=== PATIENT | female | born 1955 | race Caucasian/White ===

== ENCOUNTER → 2019-05-14 | Outpatient (CLI) | payer MEDICARE, BC, SELFPAY ==
[2019-05-14 12:16] LABS: Absolute Neutrophil Count 3.3 X10^3/uL (2.0-7.7); Basophil# 0.03 X10^3/uL; Basophil% 0.5 % (0-1); Eosinophil# 0.08 X10^3/uL; Eosinophils% 1.4 % (0-5); Hematocrit 45.2 % (37-47); Hemoglobin 14.1 g/dL (12.0-15.0); Lymphocyte % 32.5 % (19-41); Mean Corp Hgb Conc 31.2 g/dL (32-36); Mean Corpuscular Hgb 28.9 pg (27.0-32.0); Mean Corpuscular Volume 92.6 fL (81-99); Mean Platelet Vol. 10.3 fl (6.2-12.0); Monocyte# 0.49 X10^3/uL; Monocyte% 8.4 % (0-10); NRBC Flagged by Analyzer 0 % (0-5); Neutrophil # 3.34 X10^3/uL (2.7-7.7); Platelet Count 300 K/mm3 (150-450); RBC Distribution Width CV 13.2 % (11.6-14.6); RBC Distribution Width SD 44.8 fl (35.1-43.9); Red Blood Count 4.88 M/mm3 (4.2-5.4); White Blood Count 5.9 K/mm3 (4.4-11.0)
[2019-05-14 12:42] LABS: AST(SGOT) 19 U/L (15-37); Alanine Aminotransfer ALT/SGPT 37 U/L (13-56); Albumin, Serum 3.5 g/dL (3.2-5.0); Alkaline Phosphatase 81 U/L (45-117); Anion Gap 6 (5-15); BUN 13 mg/dL (7-18); BUN/Creat Ratio 17.1 RATIO (10-20); Calcium,Total 8.6 mg/dL (8.5-10.1); Chloride 106 mmol/L (98-107); Cholesterol 245 mg/dL (200); Creatinine, Serum 0.76 mg/dL (0.55-1.02); EST Glomerular Filtration Rate 81 mL/min (>60); Est Glom Filt Rate - Afr Amer 98 mL/min (>60); Globulin 3.5 g/dL (2.2-4.2); Glucose 90 mg/dL (74-106); High Density Lipoprotein 54 mg/dL; Potassium 4.3 mmol/L (3.5-5.1); Sodium Level 142 mmol/L (136-145); Triglycerides 110 mg/dL; Very Low Density Lipoprotein 22 mg/dL (5-40)
== END | disposition home or self-care (01) ==
PROVIDERS: Family Provider Family Medicine; PCP Family Medicine; Visit Provider Family Medicine
DX: E78.5 Hyperlipidemia, unspecified (principal); Z51.81 Encounter for therapeutic drug level monitoring
CPT/HCPCS: 36415; 80053; 80061; 85025

== ENCOUNTER → 2020-08-28 | Outpatient (CLI) | payer MEDICARE, BC, SELFPAY ==
[2020-08-30 10:41] LABS: HPV Reflexed? NOT INDICATED
== END | disposition home or self-care (01) ==
LOC: LABSPEC 10:57
PROVIDERS: PCP Family Medicine; Visit Provider Family Medicine
DX: Z12.4 Encounter for screening for malignant neoplasm of cervix (principal)
CPT/HCPCS: 88175; G0145

== ENCOUNTER → 2020-08-30 09:34 | Outpatient (CLI) | payer MEDICARE, BC, SELFPAY ==
[2020-08-30 12:52] LABS: Basophil# 0.04 X10^3/uL; Basophil% 0.4 % (0-1); Eosinophil# 0.15 X10^3/uL; Eosinophils% 1.7 % (0-5); Hemoglobin 14.9 g/dL (12.0-15.0); Lymphocyte % 22.4 % (19-41); Mean Corp Hgb Conc 33.1 g/dL (32-36); Mean Corpuscular Hgb 30.3 pg (27.0-32.0); Mean Corpuscular Volume 91.6 fL (81-99); Mean Platelet Vol. 12.6 fl (6.2-12.0); Monocyte# 0.69 X10^3/uL; Monocyte% 7.7 % (0-10); NRBC Flagged by Analyzer 0 % (0-5); Neutrophil # 6.02 X10^3/uL (2.7-7.7); Neutrophil % 67.6 % (47-70); Platelet Count 298 K/mm3 (150-450); RBC Distribution Width CV 12.2 % (11.6-14.6); RBC Distribution Width SD 41.9 fl (35.1-43.9); Red Blood Count 4.91 M/mm3 (4.2-5.4); White Blood Count 8.9 K/mm3 (4.4-11.0)
[2020-08-30 13:11] LABS: AST(SGOT) 33 U/L (15-37); Alanine Aminotransfer ALT/SGPT 65 U/L (13-56); Albumin, Serum 3.6 g/dL (3.2-5.0); Alkaline Phosphatase 87 U/L (45-117); Anion Gap 4 (5-15); BUN 14 mg/dL (7-18); BUN/Creat Ratio 20.9 RATIO (10-20); Calcium,Total 8.7 mg/dL (8.5-10.1); Chloride 107 mmol/L (98-107); Cholesterol 271 mg/dL (200); Creatinine, Serum 0.67 mg/dL (0.55-1.02); EST Glomerular Filtration Rate 94 mL/min (>60); Est Glom Filt Rate - Afr Amer 113 mL/min (>60); Globulin 3.5 g/dL (2.2-4.2); Glucose 94 mg/dL (74-106); High Density Lipoprotein 55 mg/dL; Potassium 4.1 mmol/L (3.5-5.1); Protein, Total 7.1 g/dL (6.4-8.2); Sodium Level 141 mmol/L (136-145); Triglycerides 123 mg/dL; Very Low Density Lipoprotein 25 mg/dL (5-40)
[2020-08-30 13:20] LABS: ALB/GLOB Ratio 1.2 RATIO (0.9-2.4); AST(SGOT) 19 U/L (15-37); Alanine Aminotransfer ALT/SGPT 19 U/L (13-56); Albumin, Serum 3.7 g/dL (3.2-5.0); Alkaline Phosphatase 94 U/L (45-117); Anion Gap 7 (5-15); BUN 26 mg/dL (7-18); BUN/Creat Ratio 31.4 RATIO (10-20); Calcium,Total 9.2 mg/dL (8.5-10.1); Chloride 102 mmol/L (98-107); Creatinine, Serum 0.83 mg/dL (0.55-1.02); EST Glomerular Filtration Rate 73 mL/min (>60); Est Glom Filt Rate - Afr Amer 88 mL/min (>60); Glucose 110 mg/dL (74-106); Lipase 127 U/L (73-393); Potassium 3.1 mmol/L (3.5-5.1); Protein, Total 6.7 g/dL (6.4-8.2); Sodium Level 140 mmol/L (136-145)
== END ==
PROVIDERS: PCP Family Medicine; Visit Provider Family Medicine
DX: E78.5 Hyperlipidemia, unspecified (principal); Z51.81 Encounter for therapeutic drug level monitoring
CPT/HCPCS: 36415; 80053; 80061; 83690; 85025

== ENCOUNTER → 2020-10-31 09:55 | Outpatient (CLI) | payer MEDICARE, SELFPAY ==
[2020-10-31 12:33] LABS: ALB/GLOB Ratio 1.1 RATIO (0.9-2.4); AST(SGOT) 18 U/L (15-37); Alanine Aminotransfer ALT/SGPT 44 U/L (13-56); Albumin, Serum 3.6 g/dL (3.2-5.0); Alkaline Phosphatase 72 U/L (45-117); Anion Gap 2 (5-15); BUN 16 mg/dL (7-18); BUN/Creat Ratio 21.5 RATIO (10-20); Calcium,Total 8.9 mg/dL (8.5-10.1); Chloride 106 mmol/L (98-107); Cholesterol 244 mg/dL (200); Creatinine, Serum 0.74 mg/dL (0.55-1.02); EST Glomerular Filtration Rate 83 mL/min (>60); Est Glom Filt Rate - Afr Amer 100 mL/min (>60); Globulin 3.3 g/dL (2.2-4.2); Glucose 98 mg/dL (74-106); High Density Lipoprotein 67 mg/dL; Potassium 4.2 mmol/L (3.5-5.1); Protein, Total 6.9 g/dL (6.4-8.2); Sodium Level 141 mmol/L (136-145); Triglycerides 97 mg/dL; Very Low Density Lipoprotein 19 mg/dL (5-40)
[2020-10-31 12:46] LABS: Absolute Lymphocyte Count 2.08 X10^3/uL (0.83-4.51); Absolute Neutrophil Count 4.3 X10^3/uL (2.0-7.7); Basophil# 0.03 X10^3/uL; Basophil% 0.4 % (0-1); Eosinophils% 1.4 % (0-5); Hematocrit 46.4 % (37-47); Hemoglobin 14.6 g/dL (12.0-15.0); Lymphocyte # 2.08 X10^3/ul (4.0); Lymphocyte % 29.9 % (19-41); Mean Corp Hgb Conc 31.5 g/dL (32-36); Mean Corpuscular Hgb 28.7 pg (27.0-32.0); Mean Corpuscular Volume 91.3 fL (81-99); Monocyte% 5.7 % (0-10); NRBC Flagged by Analyzer 0 % (0-5); Neutrophil # 4.33 X10^3/uL (2.7-7.7); Neutrophil % 62.3 % (47-70); Platelet Count 300 K/mm3 (150-450); RBC Distribution Width CV 12.8 % (11.6-14.6); RBC Distribution Width SD 43.7 fl (35.1-43.9); Red Blood Count 5.08 M/mm3 (4.2-5.4)
== END ==
PROVIDERS: PCP Family Medicine; Visit Provider Family Medicine
DX: E78.5 Hyperlipidemia, unspecified (principal); Z51.81 Encounter for therapeutic drug level monitoring
CPT/HCPCS: 80053; 80061; 85025

== ENCOUNTER → 2020-12-04 13:33 | Outpatient (CLI) | payer MEDICARE, BC, SELFPAY ==
--- NOTE | 2020-12-04 13:36 | CT_ITS ---
STUDY: CT SCAN LOWER EXTREMITY LEFT REASON FOR EXAM: Female, 65 years old. VARUS DEFORMITY. RUI protocol. RADIATION DOSAGE (If Supplied By Facility): CTDIvol = ( 18.76 ) mGy, DLP = ( 1014.71 ) mGycm. Individualized dose optimization techniques were used for this CT.? TECHNIQUE: Multiple axial tomographic images of the left lower extremity including the knee joint, hip joint and ankle joint were obtained. Coronal and sagittal reconstruction was obtained as well. COMPARISON: None. FINDINGS: Mild degree of joint space narrowing of the hip joint with degenerative spur formation along the superior and inferior aspect of the acetabulum. Marked degree of joint space narrowing involving the medial compartment of the knee joint with degenerative spur formation along the medial femoral condyle as well as the medial tibial plateau. Moderate degree of the osteoarthritis of the patellofemoral joint with spur formation along the anterior distal femur as well as the superior and inferior portions of the patella. Moderate-sized joint effusion. Imaging of the ankle joint was performed. Findings suggestive of an old avulsion fracture of the medial malleolus. Calcaneal spurs. CT/Extremity Lower without Contra IMPRESSION: Moderate degree of joint space narrowing of the medial compartment of the knee joint with degenerative spur formation. Moderate degree of the osteoarthritis involving the patellofemoral joint with a joint effusion. Electronically Signed: Tim Uribe MD at 14:16 EDT , Service support ,
== END ==
PROVIDERS: PCP Family Medicine; Referring Provider Specialist; Visit Provider Specialist
DX: M21.162 Varus deformity, not elsewhere classified, left knee (principal)
CPT/HCPCS: 73700

== ENCOUNTER → 2020-12-19 06:09 | Outpatient (CLI) | payer MEDICARE, BC, SELFPAY ==
[2020-12-13 08:45] VITALS: BMI 33.0
--- NOTE | 2020-12-19 06:12 | ECHOD_ITS ---
Reason For Study: CAD Procedure This was a 2D Doppler, Color Flow transthoracic echocardiogram. Exam performed in department. Left Ventricle Normal LV size. Left ventricular systolic function is normal. The estimated ejection fraction is 60 %. Stage 1 diastolic dysfunction. No regional wall motion abnormalities noted. Right Ventricle Normal RV size. Normal systolic function. Atria Normal left atrium. Normal right atrium. Mitral Valve Normal mitral valve. Tricuspid Valve Normal tricuspid valve. Mild tricuspid valve insufficiency. Aortic Valve Normal aortic valve. Trisinus/trileaflet aortic valve. Pulmonic Valve Normal pulmonic valve. Great Vessels Normal aortic root. The pulmonary artery is normal size. Normal inferior vena cava. Pericardium/Pleural No pericardial effusion. MMode/2D Measurements & Calculations LVIDd: 4.0 cm IVSd: 0.88 cm Ao root diam: 3.3 cm LVIDs: 2.7 cm LVPWd: 1.0 cm RVDd: 3.8 cm FS: 32.1 % LAV(MOD-bp): 59.3 ml EDV(MOD-sp4): 93.2 ml EDV(MOD-sp2): 80.3 ml LAV(MOD-bp) Indexed: 33.2 ml/m2 ESV(MOD-sp4): 32.8 ml EF(MOD-sp2): 61.4 % LAV(MOD-sp2): 63.2 ml EF(MOD-sp4): 64.8 % LAV(MOD-sp4): 50.8 ml SV(MOD-sp4): 60.4 ml SV(MOD-sp2): 49.3 ml LA A4 area: 19.5 cm2 LA dimension(2D): 3.5 cm RA A4 area: 13.2 cm2 Time Measurements MV dec time: 0.25 sec Doppler Measurements & Calculations MV E max michael: 74.4 cm/sec Lat Peak E' Michael: 10.3 cm/sec Med Peak E' Michael: 6.7 cm/sec MV A max michael: 83.9 cm/sec E/E' lat: 7.2 E/E' med: 11.1 MV E/A: 0.89 MV V2 max: 96.3 cm/sec Ao V2 max: 140.1 cm/sec LV V1 max: 99.8 cm/sec MV max P.7 mmHg Ao max P.9 mmHg LV V1 max P.0 mmHg MV V2 mean: 66.8 cm/sec MV mean P.9 mmHg MV V2 VTI: 31.3 cm PA V2 max: 98.1 cm/sec TR max michael: 212.4 cm/sec MV P1/2t-pr_phl: 107.3 msec PA V2 mean: 63.9 cm/sec TR max P.1 mmHg PA V2 VTI: 31.0 cm ECHO/Echo Complete Interpretation Summary Normal LV size. Left ventricular systolic function is normal. The estimated ejection fraction is 60 %. Stage 1 diastolic dysfunction. Structurally normal valves. Ordering Physician: Nahun Pink Referring Physician: MARGOT BRAUN Performed By: Tana Vickers, RDCS, RVT
--- NOTE | 2020-12-19 13:14 | STRESSREP_ITS ---
Stress Test Report Pharmacologic myocardial perfusion stress test. 65-year-old lady with a history of abnormal EKG preop cardiac evaluation. Stress protocol: Resting KG demonstrates normal sinus rhythm with a rate of 76 bpm normal intervals are noted resting blood pressure is 118/78 mmHg. 0.4 mg of regadenoson was infused per usual protocol followed by rapid intravenous saline flush injection continuous EKG monitoring was performed. Patient maintained sinus rhythm throughout the recording. The maximum heart rate attained was 99 bpm which was 64% of max impacted heart rate the maximum workload was 1 metabolic equivalent. The patient did have an episode of bradycardia arrhythmia noted. She also had an episode where she dropped her blood pressure from the resting of 118/78 to a blood pressure of 64/48. Patient needed IV fluids and Trendelenburg position to improve her symptoms. Patient blood pressure and heart rate returned to normal on termination of the test. Myocardial perfusion protocol. 11.9 mCi of technetium 99m sestamibi was injected at rest. 0.4 mg of regadenoson was infused per usual protocol. At peak infusion 34.3 mCi of t echnetium 99m sestamibi was injected stress images were obtained stress and rest images were reconstructed and compared in the short axis vertical long and horizontal long axis. Gated images were also obtained. Perfusion SPECT analysis: Review of the stress images demonstrate normal uptake of tracer noted in all areas of the myocardium the resting images similar demonstrate normal uptake of tracer noted in all areas of the myocardium. No areas of reversibility are noted to suggest ischemia. Gated SPECT analysis: Gated ejection fraction is estimated at 55%. Conclusion: Normal pharmacologic myocardial perfusion stress test. No ischemia noted.
== END ==
PROVIDERS: PCP Family Medicine; Referring Provider Internal Medicine Cardiovascular Disease; Visit Provider Internal Medicine Cardiovascular Disease
DX: Z01.810 Encounter for preprocedural cardiovascular examination (principal); I25.10 Atherosclerotic heart disease of native coronary artery without angina pectoris
CPT/HCPCS: 78452; 93017; 93306; A9500; J7040; A4216; J2785

== ENCOUNTER 2020-12-20 18:27 | Inpatient (IN) | payer MEDICARE, BC, SELFPAY ==
--- NOTE | 2020-12-04 12:47 | EKG12_ITS ---
Test Reason : PREOP Blood Pressure : / mmHG Vent. Rate : 079 BPM Atrial Rate : 079 BPM P-R Int : 172 ms QRS Dur : 082 ms QT Int : 360 ms P-R-T Axes : 046 050 003 degrees QTc Int : 412 ms Normal sinus rhythm T wave abnormality, consider inferior ischemia Abnormal ECG Confirmed by STEPHANI RODRIGES, RACHELL ([id number]), editorial cartoonist CATHY HERR ([id number]) on 12/05/2020 10:47:40 AM Referred By: Terry Flores Confirmed By:RACHELL STYLES MD
[2020-12-04 13:44] LABS: Absolute Lymphocyte Count 2.06 X10^3/uL (0.83-4.51); Absolute Neutrophil Count 5.3 X10^3/uL (2.0-7.7); Basophil# 0.03 X10^3/uL; Basophil% 0.4 % (0-1); Eosinophil# 0.05 X10^3/uL; Eosinophils% 0.6 % (0-5); Hematocrit 46.1 % (37-47); Hemoglobin 14.8 g/dL (12.0-15.0); Lymphocyte # 2.06 X10^3/ul (4.0); Lymphocyte % 26.3 % (19-41); Mean Corp Hgb Conc 32.1 g/dL (32-36); Mean Corpuscular Hgb 29.1 pg (27.0-32.0); Mean Corpuscular Volume 90.7 fL (81-99); Mean Platelet Vol. 9.6 fl (6.2-12.0); Monocyte# 0.39 X10^3/uL; NRBC Flagged by Analyzer 0 % (0-5); Neutrophil # 5.28 X10^3/uL (2.7-7.7); Neutrophil % 67.6 % (47-70); Platelet Count 325 K/mm3 (150-450); RBC Distribution Width CV 12.9 % (11.6-14.6); RBC Distribution Width SD 43.4 fl (35.1-43.9); Red Blood Count 5.08 M/mm3 (4.2-5.4); White Blood Count 7.8 K/mm3 (4.4-11.0)
[2020-12-04 14:08] LABS: Anion Gap 3 (5-15); BUN 15 mg/dL (7-18); BUN/Creat Ratio 19.9 RATIO (10-20); Calcium,Total 9.3 mg/dL (8.5-10.1); Chloride 105 mmol/L (98-107); Creatinine, Serum 0.75 mg/dL (0.55-1.02); EST Glomerular Filtration Rate 82 mL/min (>60); Est Glom Filt Rate - Afr Amer 99 mL/min (>60); Glucose 106 mg/dL (74-106); Potassium 3.9 mmol/L (3.5-5.1); Sodium Level 141 mmol/L (136-145)
--- NOTE | 2020-12-05 11:49 | HP.PCM_ITS ---
History and Physical History and Physical [facility] Patient Name: Leandra Carroll : 1955 From: [facility] [place] PA-C DATE OF SURGERY: 12/20/2020 SCHEDULED PROCEDURE: left total knee arthroplasty HISTORY OF PRESENT ILLNESS: In her left knee for several years. Her pain is been constant, aching, sharp, stabbing, sore. She has increased pain going up and down stairs and walking. Pain with prolonged standing. Patient states her pain can reach 8/10 at worst. She gets intermittent swelling in the knee. She has had to sleep with a pillow under her knees due to the pain at nighttime. Patient states difficulty with activities of daily living including walking and stairs. She does have start up pain. She gets catching and clicking in the left knee. She has attempted conservative measures including rest, ice, heat, elevation with minimal relief. She has tried compression and oral medications including diclofenac and which she has been on for over 20 years. There is been no previous surgeries on the left knee. She has tried mqrc-wgx-mhcnkli brace without relief in symptoms. After failing conservative measures and discussing treatment options with Dr. Terry Flores, the patient does wish to proceed with surgery left total knee arthroplasty. We are obtaining surgical clearance from her primary care physician Dr. Tellez. REVIEW OF SYSTEMS: ROS: Const: Denies change in appetite, fever,or weight change. CV: Denies chest pain, heart murmur and irregular heartbeat. Resp: Denies cough, pneumonia, SOB, tuberculosis and wheezing. GI: Denies constipation, diarrhea, difficulty swallowing, heartburn, nausea, bloody stools and vomiting. : Urinary: denies incontinence. Musculo: Reports limp and trouble walking, but denies leg swelling and weakness. Skin: Denies Raynaud's, history of shingles and tattoo. Neuro: Denies ambulatory dysfunction, dizziness, numbness/tingling and tremor. Psych: Reports stress, but denies anxiety and insomnia. Adan/Lymph: Denies anemia, bleeding/bruising tendency and past transfusion. Reviewed, no changes. PAST MEDICAL HISTORY: Advance Care Plan: No Advance Directives Effective Date: 03/04/2019 PMH: Medical Problems: Arthritis, Hypercholesterolemia Accidents: Fracture - RT RING FINGER--1969'S RT COLLAR BONE--1993 Surgical Hx: LT Bunion - (2011) DENIS--DR MELENDEZ RT THR - (10/03/2015) SAW @ [facility] Anesthesia Complications: Comes Out Slowly, Nausea Assistive Devices: Glasses Reviewed and updated. SOCIAL HISTORY: SH: Marital: .Occupation: Retired.Work Status: Retired.Hand Dominance: Right- handed. Personal Habits: Cigarette Use: Never Smoked Cigarettes.Alcohol: Denies use.Drug Use: Denies Use.Enjoy Exercising: Exercises 1-3 X/Week. Reviewed and updated. VITALS: Ht: 61.3 Wt: 173lb Wt k.473 BMI: 32.4 BP: 132/96 Pulse: 63 Resp: 12 T: 97.2 T: 36.2C Pain Level: 2 ALLERGIES: Dilantin MEDICATIONS: Oxycodone HCL 5 mg 1-2 tab by mouth every 4 hours, Promethazine HCL 12.5 mg 1-2 tablets by mouth every 6 hours, Famotidine 20 mg 1 by mouth every day, Womens 50+ Advanced one PO daily, Diclofenac Sodium ER 100 mg 1po everyday, Pravastatin Sodium 10 mg 1 by mouth every day, Tart Anderson Supplement 1po qday, [place] 3 1000 mg 4 by mouth every day, Vitamin D-3 25 mcg (1000 Ut) 1po qday, Calcium Plus Capsule(600MG) daily PRE-OP EXAM: General appearance:NORMAL Other: Eyes: Conjunctivae and lids: NORMAL Pupils: ERR Ears, Nose, Mouth, and Throat: NORMAL Other: Inspection of lips, teeth and gums: NORMAL Other: Neck: Examination of neck: no masses noted. Respiratory: Assessment of respiratory effort: NORMAL Other: Auscultation of lungs: clear to auscultation no wheezes, rhonchi or rales. Cardiovascular: Auscultation of heart: regular rate and rhythm, no murmurs, gallops or rubs. Exam of carotid arteries: NORMAL Other: Gastrointestinal: Exam of abdomen: soft, nontender, nondistended bowel sounds present. PHYSICAL EXAMINATION: On clinical exam patient does walk with an antalgic gait. Left knee is cool to touch without erythema or signs of infection. She has a varus deformity which is correctable on exam. There is tenderness to palpation along the medial joint line. Mild effusion left knee. Range of motion: 0 extension to 112 flexion. Stable to varus/valgus stress test, stable anterior/posterior drawer. Sensation intact to light touch. IMAGING STUDIES: Previous x-rays of the left knee revealed medial joint space narrowing with subchondral sclerosis, osteophyte formation and uoiw-yv-tdph contact medial compartment. There is also severe otja-tt-ygld contact in the patellofemoral compartment with grade 4 severe osteoarthritis. IMPRESSION: 1. Severe left knee osteoarthritis 2. Right knee osteoarthritis 3. Hypercholesterolemia PLAN: I did discuss and review with the patient all treatment options including surgical versus nonsurgical options. Patient does wish to proceed with the above-stated procedure. Potential risks, benefits, and complications of the procedure were discussed in detail including but not limited to , infection, nerve and blood vessel damage, persistent pain, numbness, tingling, paresthesias, blood clot, pulmonary embolism, and requirement for possible further surgery. The patient expressed full understanding and has no further questions for the doctor. Patient does agree to proceed with the above-stated procedure and has signed the surgery consent form. We discussed the current risks associated with COVID 19. This does include the risk of exposure while in the hospital. Patient was reassured local hospitals have low infection rates and are taking all necessary precautions to avoid exposure to patients. In addition, we discussed strategies that can be used to help limit exposure including those that limit the patient's time in the hospital. Also using strategies to limit the patient's need for continued inpatient services after being discharged from the hospital. Patient was notified that we will need to comply with any screening or testing the hospital wishes to perform or that surgery may be delayed for any positive results. This dictation was created using voice recognition software. Phonetic and/or grammatical errors may exist. ___ I have re-examined the patient. There are no clinical changes since date of exam. ___ See progress notes for changes. ___ Dictated on admission Date: Time: Signature:
[2020-12-06 13:20] LABS: Magnesium 2.5 mg/dL (1.6-2.6)
[2020-12-13 08:45] VITALS: BMI 33.0
[2020-12-20] VITALS (15 sets, daily range): BP systolic 103–137; BP diastolic 63–87; PULSE 77–95; RESP 16; TEMP 35.6–36.9; O2SAT 92–100; BMI 32.7; BMI 33.5
[2020-12-20] MEDS: Scopolamine 1mg/72hr Patch 1 PATCH TD (07:15)
[2020-12-20 07:51] LABS: Bedside Glucose 77 mg/dL (70-110)
[2020-12-20] MEDS: Celecoxib 200 MG Capsule 400 MG PO (07:55)
[2020-12-20] MEDS: Gabapentin 600 MG Tablet PO (07:56)
[2020-12-20] MEDS: Acetaminophen 500 MG Tablet 1000 MG PO ×3 (07:56→23:35)
[2020-12-20] MEDS: Lactated Ringers 1,000 ML 999 ML IV ×2 (07:58→10:44)
[2020-12-20] MEDS: Cefazolin 2 GM in 0.9% Normal Saline 100 ML IV (08:35)
[2020-12-20] MEDS: dexAMETHasone 10 MG/ML Vial IV (08:55)
--- NOTE | 2020-12-20 10:12 | OP.PCM_ITS ---
Report of Operation Date of Procedure: 12/20/20 Pre-Operative Diagnosis: Left knee primary osteoarthritis Post-Operative Diagnosis: Left knee primary osteoarthritis Surgery/Procedure Performed:: Left minimally invasive robotic assisted total knee replacement Description of Surgical Findings:: Stable knee with good patella tracking labor relations analyst: Arlet Rockwell Type of Anesthesia:: Spinal Anesthesiologist: Kt White Special Medications: 2 g Ancef, 1 g TXA at incision, 1 g TXA closure, 10 mg Decadron, joint cocktail (5 mg Duramorph, 30 mL of 0.5% Ropivicaine, 1000 units of epinephrine, 30 mg of Toradol) Specimen's removed: Bony cuts Estimated Blood Loss (mL): 75 Fluids Replaced: 1300 mL crystalloid Description of Procedure: Implants used: 1. Teresa size 2 triathlon posterior stabilized distal femoral press-fit component 2. Teresa size 3 press-fit tritanium tibial baseplate 3. Teresa X3 11 mm PS polyethylene 4. Teresa X3 32 mm asymmetric patella Brief history operative indications: 65-year-old F with history of left knee osteoarthritis with radiographic findings with loss of joint space, osteophyte formation and subchondral sclerosis. Failed conservative measures as mentioned in the H&P. Discussion of total knee arthroplasty as well as risk and benefits were discussed the patient including but not limited to blood loss, DVTs, PEs, neurovascular damage, general risk of anesthesia including loss of life, and stiffness or instability were discussed with patient. Patient demonstrated understanding and was able to sign informed consent. Procedure: On the date of procedure patient's left lower extremity was marked in the preoperative area. The patient was then taken back to the operating room where the patient was placed on the table in the supine position. All bony prominences were identified a well-padded. Anesthesia assumed control of the C-spine and airway and remained controlled throughout the remainder of the procedure. A tourniquet was placed on the left upper thigh and the leg was prepped in a sterile fashion. The surgeon then scrubbed at this time .Upon reentering the room left lower extremity was draped in a standard orthopedic fashion. A timeout was then called and everyone agreed upon the side, the site, the procedure to be performed, patient's identity and antibiotics given. Esmarch bandage was used to exsanguinate the extremity and the tourniquet was placed up to 250 mmHg with the knee in flexion. A midline skin incision was made and sharp dissection was taken down through skin subcutaneous tissue and fat. The standard medial parapatellar incision was made and the patella was subluxed laterally. An Appropriate deep MCL release was done and the fat pad was resected. Our attention was then directed to the patella. The patella was everted and a flat resection was made. The knee was then flexed up in 2 femoral pins were placed inside the incision and 2 tibial pins were placed outside the incision in the medial tibia bicortically. Once this was completed the 2 checkpoints in the femur and tibia were placed. Knee was then flexed up and the bony landmarks were registered. Once this was completed knee was taken through range of motion and manually stressed allowing us to a plan for an appropriate tibial cut. The robotic arm was brought into the field sterilely and checkpoint and saw were registered. Based on the patient's deformity the tibial cut was made in 3 degrees varus. At this time the tensioner was then placed in the joint and ligament tension was checked at 90 degrees and full extension. Based on the patient's ligamentous tension appropriate adjustments were made to the operative plan and ligament releases were done. Once we were happy with our operative plan with balanced flexion and extension gaps our attention was directed to the femur. The robot was brought into the field sterilely and registered. Posterior condylar cuts, anterior chamfer cuts and anterior cuts were appropriately made for a size 2 femur. When these were completed the saws were switched out in the distal femoral and posterior chamfer cuts were made. Protecting the soft tissue throughout this time. A size 3 tibial base plate was selected. the knee was flexed to 90 degrees and the soft tissues and posterior osteophytes were removed from the joint. 40 cc of the periarticular injection was injected into the posterior medial corner of the joint. Box cut was made. The appropriate trials were then placed on the femur and tibia. A trial polyethylene was trialed to ensure proper balancing and stability of the knee. The appropriate tibial internal rotation was then marked with a bovie. Our attention was then directed to the patella. The lug holes were drilled and the patella trial was placed. Patellar tracking was checked and deemed appropriate. Once we were happy lug holes were drilled for the femur and trial components were removed. the tibia was subluxed and pinned into place and the keel was punched and drilled appropriately. Final components were verified and opened, and cement was mixed in a vacuum. [employer] Simplex cement was used. The wound was copiously irrigated with normal saline. When the cement was ready the components were impacted into place starting with the tibia, femur and finally cementing the patella. The trial poly component was placed and the knee was placed in full extension. All excess cement was removed in the process. Once the cement had cured the tracking, alignment and balance were verified and a size 11 mm PS polyethylene component was placed. Once the final components were placed a 3-minute dilute Betadine lavage was performed followed by an Irrisept lavage was performed and the wound was copiously irrigated with normal saline solution and the periarticular injection was given. The wound was closed in a layer mancia fashion using #1 vicryl interrupted sutures for the arthrotomy, 2-0 interrupted Vicryl suture for the subcuticular layer and trevor for final skin closure. A sterile compressive dressing was then placed. The patient was then awakened from anesthesia, transferred to the rgalliano and transferred to the PACU for recovery. Post op plan DVT ppx: ASA 81mg BID, thigh high compression stockings Follow up: in office in 2 weeks for wound check PT: to start POD #0 at hospital, outpatient PT should be arranged. My physician assistant professor of religion was a vital part of this case. He was important in appr opriate retraction during the case, and protection of soft tissues during bony cuts. His intimate knowledge of the case and my steps aided in safe and expedient completion of the procedure as well as appropriate position of the leg during the case. He was also vital in assisting with closure under my direct supervision. Due to the complexity of this case robotic arm was used to assist in the surgery to improve accuracy and clinical outcomes. - Complications No intraoperative complications - Admit VTE Documentation VTE Present on Admission: No VTE Mechan Device Prophylaxis: SCD's, Thigh High MAGDA Hose VTE Pharm Prophylaxis ordered?: Yes
[2020-12-20] MEDS: Lactated Ringers 1,000 ML 125 ML IV (10:45)
--- NOTE | 2020-12-20 10:56 | RAD_ITS ---
STUDY: X-RAY - LEFT KNEE REASON FOR EXAM: Postop left total knee arthroplasty. TECHNIQUE: 2 view(s) of the knee. COMPARISON: CT images 12/04/2020. FINDINGS: There is a left total knee arthroplasty without evidence of complication. There is postoperative gas in the soft tissues and overlying skin trevor. RAD/Knee 1 or 2 Views IMPRESSION: Uncomplicated left total knee arthroplasty. Electronically Signed: Sergey Suarez MD at 11:35 EDT Tel , Service support ,
[2020-12-20] MEDS: Cefazolin 1 GM/50 ML BAG IV (12:45)
[2020-12-21] VITALS (13 sets, daily range): BP systolic 73–130; BP diastolic 40–70; PULSE 54–86; RESP 15–18; TEMP 36.6–37.3; O2SAT 94–99
[2020-12-21] MEDS: Acetaminophen 500 MG Tablet 1000 MG PO ×3 (05:20→21:17)
[2020-12-21 08:15] LABS: Hematocrit 39.6 % (37-47); Hemoglobin 12.5 g/dL (12.0-15.0); Mean Corp Hgb Conc 31.6 g/dL (32-36); Mean Corpuscular Hgb 29.3 pg (27.0-32.0); Mean Platelet Vol. 9.4 fl (6.2-12.0); Platelet Count 286 K/mm3 (150-450); RBC Distribution Width CV 12.8 % (11.6-14.6); RBC Distribution Width SD 43.7 fl (35.1-43.9); Red Blood Count 4.26 M/mm3 (4.2-5.4); White Blood Count 13.9 K/mm3 (4.4-11.0)
--- NOTE | 2020-12-21 08:18 | PCM.PN.ORT ---
Subjective: The patient was sitting in bedside chair upon examination. Patient denies any chest pain, shortness of breath, dizziness, lightheadedness, nausea or vomiting, or calf pain. Pain is controlled on medications. No adverse overnight events. Patient was planned for an outpatient total knee arthroplasty. However she developed significant nausea and vomiting and required observation night stay. She states this morning she is doing significantly better. She denies any nausea or vomiting at this time. Her pain is been well controlled. As she was scheduled as an outpatient total knee arthroplasty, patient has all medications already filled at home. Objective: Vital signs stable and afebrile. Patient is able to plantarflex and dorsiflex actively. Sensation is intact to light touch to saphenous, sural, superficial and deep peroneal, and tibial distribution. Main dressing is clean dry and intact. Distal pin site dressing with minimal drainage Negative Homans bilaterally, negative signs and symptoms of DVT. - Physical Exam Vitals/I&O's: Vital Signs Temp Pulse Resp BP Pulse Ox 97.9 F 74 15 106/62 94 12/21/20 02:05 12/21/20 02:05 12/21/20 02:05 12/21/20 02:05 12/21/20 02:05 Oxygen Flow Rate (L/min) 6 Oxygen Delivery Method Room Air Weight: 80.603 kg Body Mass Index (BMI) 33.5 Intake and Output for Last 24 Hours 12/19/20 12/20/20 12/21/20 23:59 23:59 23:59 Intake Total 3984.5 / 3984.5 500 / 500 Output Total 900 / 900 800 / 800 Balance 3084.5 / 3084.5 -300 / -300 General: Alert, Oriented x3, Cooperative, No apparent distress Microbiology Past 72 Hours 12/19/20 09:45 Interface Orders SARS-CoV-2 Antigen (Rapid) - Final Laboratory Results 12/21/20 08:04: WBC 13.9 H, RBC 4.26, Hgb 12.5, Hct 39.6, MCV 93.0, MCH 29.3, MCHC 31.6 L, RDW Std Deviation 43.7, RDW Coeff of Marli 12.8, Plt Count 286, MPV 9.4 12/21/20 08:04: Sodium Pending, Potassium Pending, Chloride Pending, Carbon Dioxide Pending, Anion Gap Pending, BUN Pending, Creatinine Pending, Est GFR (MDRD) Af Amer Pending, Est GFR (MDRD) Non-Af Pending, BUN/Creatinine Ratio Pending, Glucose Pending, Calcium Pending Current Medications Acetaminophen (Acetaminophen 500 Mg Tablet) 1,000 mg PO Q8 [facility] Last Admin: 12/21/20 05:20 Dose: 1,000 mg Documented by: Aspirin (Aspirin 81 Mg Tab.Chew) 81 mg PO BID [facility] Sodium Chloride () 250 mls @ 15 mls/hr IV .[id number] PRN PRN Reason: Saline Flush Ketorolac Tromethamine (Ketorolac 30 Mg/Ml Syringe) 30 mg IV X1 PRN PRN Reason: Pain Score 4-10 Stop: 12/25/20 07:10 Morphine Sulfate (Morphine 2 Mg/Ml Syringe) 2 - 4 mg IV Q2H PRN PRN PRN Reason: Pain Score 6-10 Ondansetron HCl (Ondansetron 4 Mg/2 Ml Vial) 4 mg IV Q8H PRN PRN PRN Reason: NAUSEA Oxycodone HCl (Oxycodone 5 Mg Tablet) 5 - 10 mg PO Q4H PRN PRN PRN Reason: Pain Score 4-10 Promethazine HCl (Promethazine 25 Mg/Ml Syringe) 12.5 mg IM Q6H PRN PRN PRN Reason: NAUSEA/VOMITING Senna/Docusate Sodium (Senna/Docusate Sodium 1 Tablet) 2 tablet PO BID [facility] Sodium Chloride (0.9% Saline Lock 10 Ml Syringe) 10 - 40 ml IV UD PRN PRN Reason: SALINE FLUSH Medical Necessity - Tobacco Use Smoking Status: Never smoker Tobacco Use: Non-smoker Assessment/Plan All Active Problems (Last Reviewed 12/13/20 @ 10:[address] Nahun Pink MD) Encounter for pre-operative cardiovascular clearance (Acute) Abnormal electrocardiogram (Acute) 1. S/P left total knee arthroplasty POD #1 2. Continue Pain Medications: Tylenol and OxyIR 3. DVT Prophylaxis: Take 81 mg aspirin twice daily for 4 weeks postoperatively for DVT prophylaxis 4. PT/OT: Weightbearing as tolerated 5. H & H: 12.5/39.6, asymptomatic. 6. Reactive leukocytosis: Currently 13.9, afebrile. Patient did receive Decadron intraoperatively 7. Encouraged Incentive Spirometry 8. Disposition: Overall patient is doing very well this morning. She is orthopedically stable. Plan will be for discharge home after this morning physical therapy. Patient has all medications at home as she was planned for a outpatient total knee arthroplasty. She has outpatient physical therapy scheduled to begin tomorrow. She will follow-up per postop instructions.
--- NOTE | 2020-12-21 08:22 | DCINST_ITS ---
Discharge Diet: No Restrictions Discharge Activity: May Not Drive May shower in (days): 1 - Okay to shower if dressing is intact to skin. Turn dressing away from water. Do not submerge underwater for 6 weeks postoperatively. Ice area for (Minutes): 20 - every hour while awake. Weight Bearing Status: Weight bearing as tolerated Elevate: Operative Extremity Additional Activity Instructions:: Wear elastic stockings for 2 weeks after your surgery. Call your doctor if your incision/area has: Continuous Slow Oozing, Sudden Increased Bleeding, Increased Pain/ Swelling, Increased Redness, Foul Smelling Discharge Call your doctor if you observe: Fever of 101 or Higher, Coldness, Increased Pain, Numbness or Tingling, Change in Color, Calf discomfort, Uncontrolled pain Remove Dressing in (days):: 4 - Okay to remove dressing on December 25, 2020 Additional Instructions: Follow [facility] Post-op Instructions. Once postoperative dressing has been removed only use gentle soap and water over the incision. Do not use any ointments, Neosporin, salves, alcohol pads over the incision for 6 weeks postoperatively. Do not submerge underwater for 6 weeks postoperatively. Allergies/Adverse Reactions: Allergies phenytoin [From Dilantin] Allergy (Verified 12/20/20 07:50) Rash Medications to take at Discharge Calcium (Elemental) [Os-Erik 500] 500 mg PO DAILY@0800 12/06/20 Cholecalciferol (Vitamin D3) [Vitamin D3] 25 mcg PO DAILY 12/06/20 Diclofenac Sodium [Diclofenac Sodium ER] 100 mg PO DAILY 12/06/20 Multivit with Calcium,Iron,Min [Multiple Vitamins For Women] 2 each PO DAILY 12/06/20 Pravastatin Sodium 10 mg PO QHS 12/06/20 Sour Anderson Extract [Tart Anderson Extract] 1,200 mg PO DAILY 12/06/20 Acetaminophen [Tylenol] 1,000 mg PO Q8 tablet 12/21/20 Aspirin [Aspirin, Baby] 81 mg PO BID tab.chew 12/21/20 Oxycodone [Oxyir] 5 - 10 mg PO Q4H PRN PRN 5 Days tablet 12/21/20 Senna/Docusate Sodium [Senokot-S] 2 tablet PO BID tablet 12/21/20 Primary Care Physician: Lakesha Tellez DO [Primary Care Provider] - Test Results: Test results from this visit will be discussed in further detail at your follow- up appointment, if applicable. Please Follow Up With: Physical Therapy When: 12/22/20 @ 9:00 am Please Follow Up With: Efra Landis PA-C When: 01/03/21 @ 9:30 am
[2020-12-21 08:31] LABS: Anion Gap 3 (5-15); BUN 11 mg/dL (7-18); BUN/Creat Ratio 14.8 RATIO (10-20); Calcium,Total 8.5 mg/dL (8.5-10.1); Chloride 107 mmol/L (98-107); Creatinine, Serum 0.74 mg/dL (0.55-1.02); EST Glomerular Filtration Rate 83 mL/min (>60); Est Glom Filt Rate - Afr Amer 101 mL/min (>60); Estimated Creatinine Clearance 41.76 ml/min; Glucose 132 mg/dL (74-106); Potassium 4.1 mmol/L (3.5-5.1); Sodium Level 140 mmol/L (136-145)
--- NOTE | 2020-12-21 09:55 | NURSING ---
Pt ambulating in hallway with therapy, Pt voiced to therapy that she was feeling dizzy-pt assisted to wheelchair d/t syncopal episode , returned to room. Vitals assessed-BP 86/50, HR 54. Pt alert, talking, reports ongoing dizziness. Assisted to bed x2 assist, bed placed in trendelenberg position. Dr. Flores paged via drain tile machine operator.
[2020-12-21] MEDS: Senna/Docusate Sodium 1 Tablet 2 TABLET PO ×2 (10:22→21:18)
[2020-12-21] MEDS: Aspirin 81 MG TAB.CHEW PO ×2 (10:22→21:17)
[2020-12-21] MEDS: 0.9% Normal Saline 1,000 ML 999 ML IV (10:45)
--- NOTE | 2020-12-21 11:32 | CASEMGMT ---
SOPHIA SULLIVAN Assessment: Face to Face with pt for initial transition planning/care coordination assessment. SOPHIA SULLIVAN introduced self and role at [facility], pt voices understanding and consents to assessment. Pt is A/O x4 and answers all questions appropriately at this time. Pt lying in bed in no distress with at bedside. Care providers, pharmacy, and demographics verified/updated. Admitting Dx: TKR PCP: Rosalinda Specialists: darell Geiger; Joesph cardio Preferred Pharmacy: Will use [facility] while here at the hospital. Normally for local rx she uses [facility]. [facility]: yes LW/HPOA: Pt denies having a LW or DPOA. LNOK: Ramiro Carroll, Living Arrangements: Pt lives with in a single story house with 3 steps to enter without rail. Pt reports being I in ADL's and denies concerns at home. Transportation: Pt drives but will have transport her to therapy until she is able to drive again. Denies concerns with transportation. DME/HHC/SNF: Pt reports having a walker, crutches, cane, grab bars in the bathroom and a BP cuff at home. Pt has no history of HHC or SNF stays. Pt has outpt therap set up to begin tomorrow at [facility]. Pt states no concerns with going home at time of dc. Pt states no further concerns/needs. Advised pt to ask CM if any further question/concerns/needs arise, voices understanding. Pt Goal: Home with outpt therapy Plan: Home with outpt therapy
[2020-12-21] MEDS: 0.9% Saline Lock 10 ML Syringe IV ×2 (11:47→19:21)
[2020-12-21] MEDS: 0.9% Normal Saline 1,000 ML 125 ML IV (11:47)
[2020-12-21 14:53] LABS: Hematocrit 35.5 % (37-47); Hemoglobin 11.3 g/dL (12.0-15.0)
--- NOTE | 2020-12-21 14:59 | EKG12_ITS ---
Test Reason : HYPOTENSION Blood Pressure : / mmHG Vent. Rate : 064 BPM Atrial Rate : 064 BPM P-R Int : 186 ms QRS Dur : 084 ms QT Int : 368 ms P-R-T Axes : 036 023 -04 degrees QTc Int : 379 ms Sinus rhythm with marked sinus arrhythmia Otherwise normal ECG Confirmed by STEPHANI RODRIGES, RACHELL ([id number]), legal editor JEFERSON CHAMBERS ([id number]) on 12/25/2020 8:58:17 AM Referred By: Terry Flores Confirmed By:RACHELL STYLES MD
--- NOTE | 2020-12-21 15:15 | PCM.CONS.GEN ---
Problem List (1) Hypotension Status: Acute (2) Near syncope Status: Acute (3) Status post total left knee replacement Status: Acute (4) Arthritis Status: Chronic (5) Hyperlipidemia Status: Chronic Reason for Consult Date of Consultation: 12/21/20 Reason for Consultation: Postoperative hypotension and near syncopal episode. History of Present Illness: The patient is a 65 year old F with past medical history as mentioned above underwent elective left total knee replacement yesterday for left knee osteoarthritis and today, she developed hypotension and she had near syncopal episode. Today morning, patient was ambulating with the physical therapy, going to the therapy room and she felt lightheaded and dizzy and she was about to pass out. Her blood pressure was low. She received IV fluid bolus and her blood pressure improved. Later, patient ambulated again and her blood pressure was low. She denied any chest pain, shortness of breath, palpitation, loss of consciousness. Her only past medical history is hyperlipidemia and arthritis. No past history of hypertension or CAD. Nursing staff reported that patient did not receive any narcotic pain medication since last night. Currently, she is afebrile, heart rate stable, blood pressure is 85/47. She is on IV fluids. Routine blood work from today reviewed. Repeat H&H revealed that hemoglobin came down from 12.5 to 11.3. No evidence of active bleeding. Patient had 2D echocardiogram on December 19, 2020 that showed normal LV size and function, ejection fraction was 60%, stage I diastolic dysfunction and structurally normal heart valves. Past Medical History Past Medical History (Chronic Problems): Chronic Problems (Last Reviewed 12/13/20 @ 10:[address] Nahun Pink MD) Arthritis (Chronic) Hyperlipidemia (Chronic) Medical History: Medical History (Last Reviewed 12/13/20 @ 10:[address] Nahun Pink MD) Hyperlipidemia (Chronic) E78.5 Cataract, right eye H26.9 Obesity E66.9 Osteoarthritis M19.90 PUD (peptic ulcer disease) K27.9 Allergies phenytoin [From Dilantin] Allergy (Verified 12/20/20 07:50) Rash Home Medications: Ambulatory Orders Medication Instructions Recorded Calcium (Elemental) [Os-Erik 500] 500 mg PO DAILY@0800 12/06/20 Cholecalciferol (Vitamin D3) 25 mcg PO DAILY 12/06/20 [Vitamin D3] Diclofenac Sodium [Diclofenac 100 mg PO DAILY 12/06/20 Sodium ER] Multivit with Calcium,Iron,Min 2 each PO DAILY 12/06/20 [Multiple Vitamins For Women] Pravastatin Sodium 10 mg PO QHS 12/06/20 Sour Anderson Extract [Tart Anderson 1,200 mg PO DAILY 12/06/20 Extract] Acetaminophen [Tylenol] 1,000 mg PO Q8 tablet 12/21/20 Aspirin [Aspirin, Baby] 81 mg PO BID tab.chew 12/21/20 Oxycodone [Oxyir] 5 - 10 mg PO Q4H PRN PRN 5 Days 12/21/20 tablet Senna/Docusate Sodium [Senokot-S] 2 tablet PO BID tablet 12/21/20 Surgical History: Surgical History (Last Reviewed 12/13/20 @ 10:[address] Nahun Pink MD) History of arthroplasty of right hip Onset Date: 2015 History of bunionectomy Z Psychiatric History: No pertinent psych hx [employer] History: No pertinent [employer] history Lives: Spouse/ Significant Other Smoking Status: Never smoker Tobacco Use: Non-smoker Alcohol: None Drugs: None - *Family History Maternal Family History: Family History (Last Reviewed 12/13/20 @ 10:[address] Nahun Pink MD) Father CVA (cerebral vascular accident) Brother CVA (cerebral vascular accident) Review of Systems Constitutional: Denies: Anorexia, Chills, Fever, Weakness Eyes: Denies: Blurred vision, Conjunctivae Inflammation, Double vision, Drainage, Redness HEENT: Denies: Difficulty Hearing, Ear Pain, Eye Pain, Nasal Congestion, Sore Throat Cardiovascular: Reports: Light Headedness. Denies: Chest Pain, Chest Pressure, Edema, Heaviness, Palpitations, Syncope Respiratory: Denies: Cough, Pleuritic Pain, Shortness of Breath, Sputum production, Wheezing Gastrointestinal: Denies: Abdominal Pain, Constipation, Diarrhea, Nausea, Vomiting Genitourinary: Denies: Dysuria, Frequency, Hematuria Musculoskeletal: Reports: Joint Pain. Denies: Arm Pain, Back Pain, Foot Pain Skin: Denies: Dryness, Rash Neurological: Denies: Balance problems, Double vision, Change in Speech, Slurred speech, Confusion, Headaches, Incoordination Psychiatric: Denies: Anxiety, Depression Endocrine: Denies: Change in Body Habitus, Polydipsia, Polyuria - Physical Exam Vitals/I&O's: Vital Signs Temp Pulse Resp BP Pulse Ox 98.8 F 73 18 85/47 L 94 12/21/20 14:05 12/21/20 14:05 12/21/20 14:05 12/21/20 14:12 12/21/20 14:05 Oxygen Flow Rate (L/min) 6 Oxygen Delivery Method Room Air Weight: 177 lb 11.2 oz Body Mass Index (BMI) 33.5 Orthostatic Vital Signs Start: 12/21/20 14:19 Freq: q24h Status: Active Protocol: Activity Type Activity Date Activity User E-Sign Co-Sign Detail Recorded Client Recorded Date Recorded By Document 12/21/20 13:45 [facility] [id number] 12/21/20 14:20 LIZETH 12/21/20 13:45 Orthostatic Vitals Standing -Blood Pressure (90/60-120/80 mm Hg) 117/62 -Extremity Use Right Arm Sitting -Blood Pressure (90/60-120/80 mm Hg) 104/67 -Extremity Use Right Arm Lying -Blood Pressure (90/60-120/80 mm Hg) 113/51 L -Extremity Use Right Arm Intake and Output for Last 24 Hours 12/19/20 12/20/20 12/21/20 23:59 23:59 23:59 Intake Total 3984.5 / 3984.5 2100 / 2100 Output Total 900 / 900 1750 / 1750 Balance 3084.5 / 3084.5 350 / 350 General: Alert, Oriented x3, Cooperative, No apparent distress HEENT: Atraumatic, PERRLA, EOMI, Normocephalic Oral: Moist Mucosa, No Gingival or Mucosal Lesions/ Ulcerations Neck: Supple, No JVD, Negative Carotid Bruits, Trachea Midline, Thyroid Normal Size and Texture Lungs: Clear to auscultation, Normal air movement, No rhonchi, No wheeze, No rales Cardiovascular: Regular rate, Regular Rhythm, Normal S1, Normal S2, PMI Normal Abdomen: Bowel Sounds Present, Soft, Non Tender, Non-Distended, No Hepato-splenomegaly, Obese Extremities: No clubbing, No cyanosis, No edema, Capillary Refill Less than 3 Seconds Skin: No rashes, No breakdown Lymphatic: No Cervical, Supraclavicular, or Inguinal Adenopathy Neurological: Cranial nerves II-XII grossly intact, Motor Exam 5/5 strength throughout Psych/Mental Status: Normal Affect, Appropriate, Alert and oriented to time, place, person, mood and affect Microbiology Past 72 Hours 12/19/20 09:45 Interface Orders SARS-CoV-2 Antigen (Rapid) - Final Laboratory Results 12/21/20 08:04: WBC 13.9 H, RBC 4.26, Hgb 12.5, Hct 39.6, MCV 93.0, MCH 29.3, MCHC 31.6 L, RDW Std Deviation 43.7, RDW Coeff of Marli 12.8, Plt Count 286, MPV 9.4 12/21/20 08:04: Sodium 140, Potassium 4.1, Chloride 107, Carbon Dioxide 30.0, Anion Gap 3 L, BUN 11, Creatinine 0.74, Estim Creat Clear Calc 41.76, Est GFR (MDRD) Af Amer 101, Est GFR (MDRD) Non-Af 83, BUN/Creatinine Ratio 14.8, Glucose 132 H, Calcium 8.5 12/21/20 14:45: Hgb 11.3 L, Hct 35.5 L Current Medications Acetaminophen (Acetaminophen 500 Mg Tablet) 1,000 mg PO Q8 [facility] Last Admin: 12/21/20 14:23 Dose: 1,000 mg Documented by: Aspirin (Aspirin 81 Mg Tab.Chew) 81 mg PO BID [facility] Last Admin: 12/21/20 10:22 Dose: 81 mg Documented by: Sodium Chloride () 250 mls @ 15 mls/hr IV .[id number] PRN PRN Reason: Saline Flush Ketorolac Tromethamine (Ketorolac 30 Mg/Ml Syringe) 30 mg IV X1 PRN PRN Reason: Pain Score 4-10 Stop: 12/25/20 07:10 Morphine Sulfate (Morphine 2 Mg/Ml Syringe) 1 mg IV Q4H PRN PRN PRN Reason: Pain Score 6-10 Ondansetron HCl (Ondansetron 4 Mg/2 Ml Vial) 4 mg IV Q8H PRN PRN PRN Reason: NAUSEA Oxycodone HCl (Oxycodone 5 Mg Tablet) 5 mg PO Q8H PRN PRN PRN Reason: Pain Score 6-10 Senna/Docusate Sodium (Senna/Docusate Sodium 1 Tablet) 2 tablet PO BID [facility] Last Admin: 12/21/20 10:22 Dose: 2 tablet Documented by: Sodium Chloride (0.9% Saline Lock 10 Ml Syringe) 10 - 40 ml IV UD PRN PRN Reason: SALINE FLUSH Last Admin: 12/21/20 11:47 Dose: 10 ml Documented by: Assessment/Plan All Active Problems (Last Reviewed 12/13/20 @ 10:[address] Nahun Pink MD) Hypotension (Acute) Near syncope (Acute) Status post total left knee replacement (Acute) This is a 65 years old female patient underwent elective right total knee replacement, postoperative day 1, she developed postoperative hypotension and near syncopal episode and I am seeing her for postoperative consultation. #1 hypotension/near syncopal episode: It is probably due to vasovagal near syncope. Blood pressure has been low which is probably due to anesthesia side effects and narcotics although she did not receive any narcotic pain medication today. 2D echocardiogram that was done on December 19, 2020 reviewed as above. Plan: IV fluid bolus with lactated Ringer's, minimize IV morphine and OxyIR, stat EKG, repeat H&H tomorrow morning, orthostatic vitals tomorrow morning. #2 status post left minimally invasive robotic assisted total knee replacement: Postoperative day 1, pain is manageable. She is on morphine and OxyIR as needed for pain. Doses adjusted as above. Orthopedic surgery on the case. #3 postoperative anemia: Probably due to blood loss during surgery and hemodilution. Currently, no active bleeding. Patient is not tachycardic. Hemoglobin 2 weeks ago was 14.8, it was 12.5 this morning and repeat hemoglobin later this afternoon was 11.3 g/dL. Plan to repeat H&H tomorrow morning. #4 hyperlipidemia: Continue statins. #5 DVT prophylaxis: She is on aspirin twice daily. This note was generated with [employer] dictation software. It may contain incorrect words, spelling, and punctuation that were not noted in checking the note before signing. Inpatient E&M: 80054 Init Hosp L2
[2020-12-21] MEDS: Lactated Ringers 1,000 ML 999 ML IV (15:37)
--- NOTE | 2020-12-21 15:54 | CASEMGMT ---
Pt to stay overnight in the hospital, pt requested this CM to cancel her outpt therapy appt tomorrow at [facility]. This has been done and pt aware.
[2020-12-21] MEDS: Ketorolac 30 MG/ML Syringe IV (19:21)
[2020-12-22] VITALS (11 sets, daily range): BP systolic 90–156; BP diastolic 55–82; PULSE 59–100; RESP 16–18; TEMP 36.7–37.4; O2SAT 94–97
[2020-12-22 05:43] LABS: Hematocrit 38.5 % (37-47); Hemoglobin 12.1 g/dL (12.0-15.0)
[2020-12-22] MEDS: Acetaminophen 500 MG Tablet 1000 MG PO ×3 (06:24→20:59)
--- NOTE | 2020-12-22 06:35 | PCM.PN.ORT ---
Patient Problems: Active and Suspected Problems (Last Reviewed 12/13/20 @ 10:[address] Nahun Pink MD) Hypotension (Acute) Near syncope (Acute) Status post total left knee replacement (Acute) Subjective: The patient was sitting in bed side chair upon examination. Patient denies any chest pain, shortness of breath, dizziness, lightheadedness, nausea or vomiting, or calf pain. Pain is controlled on medications. No adverse overnight events. Patient had to stay an additional night as she had orthostatic hypotension with vasovagal yesterday with physical therapy. Patient received IV fluids. Overall today she is doing much better. She has been up to the bathroom with no episodes of syncope, dizziness or lightheadedness as like yesterday. She is currently on oral fluids. She has not required any oxycodone. She has been using Tylenol for pain control. Nursing did take orthostatic vitals today and her blood pressure was well maintained. She did have increase in heart rate but overall patient did not have episodes of dizziness or lightheadedness. Medicine is on board and following the patient. Objective: Vital signs stable and afebrile. Orthostatic vitals were obtained today with blood pressure maintained. She did have some slight increase in heart rate from lying to sitting. Denies dizziness or lightheadedness or feeling of syncope this morning Patient is able to plantarflex and dorsiflex actively. Sensation is intact to light touch to saphenous, sural, superficial and deep peroneal, and tibial distribution. Patient does have drainage throughout the middle portion of the main dressing without contacting 3 borders. We will continue with current dressing. Negative Homans bilaterally, negative signs and symptoms of DVT. - Physical Exam Vitals/I&O's: Vital Signs Temp Pulse Resp BP Pulse Ox 98.4 F 78 16 120/69 94 12/22/20 02:00 12/22/20 06:19 12/22/20 02:00 12/22/20 06:19 12/22/20 02:00 Oxygen Flow Rate (L/min) 6 Oxygen Delivery Method Room Air Weight: 80.603 kg Body Mass Index (BMI) 33.5 Orthostatic Vital Signs Start: 12/21/20 14:19 Freq: q24h Status: Active Protocol: Activity Type Activity Date Activity User E-Sign Co-Sign Detail Recorded Client Recorded Date Recorded By Document 12/22/20 06:19 [facility] [id number] 12/22/20 06:20 JASON 12/22/20 06:19 Orthostatic Vitals Standing -Blood Pressure (90/60-120/80 mm Hg) 136/75 H -Extremity Use Right Arm -Pulse Rate (60-100 beats/min) 92 Sitting -Blood Pressure (90/60-120/80 mm Hg) 124/59 H -Extremity Use Right Arm -Pulse Rate (60-100 beats/min) 100 Lying -Blood Pressure (90/60-120/80 mm Hg) 120/69 -Extremity Use Right Arm -Pulse Rate (60-100 beats/min) 78 Intake and Output for Last 24 Hours 12/20/20 12/21/20 12/22/20 23:59 23:59 23:59 Intake Total 3984.5 / 3984.5 5179 / 5179 Output Total 900 / 900 3550 / 4750 2550 / 2550 Balance 3084.5 / 3084.5 1629 / 429 -2550 / -2550 General: Alert, Oriented x3, Cooperative, No apparent distress Microbiology Past 72 Hours 12/19/20 09:45 Interface Orders SARS-CoV-2 Antigen (Rapid) - Final Laboratory Results 12/21/20 08:04: WBC 13.9 H, RBC 4.26, Hgb 12.5, Hct 39.6, MCV 93.0, MCH 29.3, MCHC 31.6 L, RDW Std Deviation 43.7, RDW Coeff of Marli 12.8, Plt Count 286, MPV 9.4 12/21/20 08:04: Sodium 140, Potassium 4.1, Chloride 107, Carbon Dioxide 30.0, Anion Gap 3 L, BUN 11, Creatinine 0.74, Estim Creat Clear Calc 41.76, Est GFR (MDRD) Af Amer 101, Est GFR (MDRD) Non-Af 83, BUN/Creatinine Ratio 14.8, Glucose 132 H, Calcium 8.5 12/21/20 14:45: Hgb 11.3 L, Hct 35.5 L 12/22/20 05:32: Hgb 12.1, Hct 38.5 Current Medications Acetaminophen (Acetaminophen 500 Mg Tablet) 1,000 mg PO Q8 [facility] Last Admin: 12/22/20 06:24 Dose: 1,000 mg Documented by: Aspirin (Aspirin 81 Mg Tab.Chew) 81 mg PO BID [facility] Last Admin: 12/21/20 21:17 Dose: 81 mg Documented by: Sodium Chloride () 250 mls @ 15 mls/hr IV .[id number] PRN PRN Reason: Saline Flush Ketorolac Tromethamine (Ketorolac 30 Mg/Ml Syringe) 30 mg IV X1 PRN PRN Reason: Pain Score 4-10 Stop: 12/25/20 07:10 Last Admin: 12/21/20 19:21 Dose: 30 mg Documented by: Morphine Sulfate (Morphine 2 Mg/Ml Syringe) 1 mg IV Q4H PRN PRN PRN Reason: Pain Score 6-10 Ondansetron HCl (Ondansetron 4 Mg/2 Ml Vial) 4 mg IV Q8H PRN PRN PRN Reason: NAUSEA Oxycodone HCl (Oxycodone 5 Mg Tablet) 5 mg PO Q8H PRN PRN PRN Reason: Pain Score 6-10 Senna/Docusate Sodium (Senna/Docusate Sodium 1 Tablet) 2 tablet PO BID [facility] Last Admin: 12/21/20 21:18 Dose: 2 tablet Documented by: Sodium Chloride (0.9% Saline Lock 10 Ml Syringe) 10 - 40 ml IV UD PRN PRN Reason: SALINE FLUSH Last Admin: 12/21/20 19:21 Dose: 10 ml Documented by: Medical Necessity - Tobacco Use Smoking Status: Never smoker Tobacco Use: Non-smoker Assessment/Plan All Active Problems (Last Reviewed 12/13/20 @ 10:[address] Nhaun Pink MD) Hypotension (Acute) Near syncope (Acute) Status post total left knee replacement (Acute) 1. S/P left total knee arthroplasty POD #2 2. Continue Pain Medications: Tylenol and OxyIR. Try to limit any oxycodone at this time. Pain is been controlled 3. DVT Prophylaxis: Take 81 mg aspirin twice daily for 4 weeks postoperatively for DVT prophylaxis 4. PT/OT: Weightbearing as tolerated 5. H & H: This morning patient's hemoglobin was 12.1 and hematocrit 38.5. Yesterday it did drop to 11.3/35.5. Preoperatively she was at 14.8/46.1. Postoperative anemia secondary to acute blood loss from surgery and possible hemodilution without any intra operative complications. 6. Reactive leukocytosis: Yesterday 13.9, afebrile. Patient did receive Decadron intraoperatively 7. Encouraged Incentive Spirometry 8. Continue postoperative medical management per medicine: Patient did have vasovagal but so yesterday secondary to orthostatic hypotension. Orthostatic vitals today her blood pressure was well maintained but did have some slight increase in heart rate from lying to sitting. Would appreciate input from medicine. Also recommended patient to continue with oral fluids. 9. Disposition: Overall patient is doing very well this morning with no episodes of dizziness, lightheadedness, or feelings of syncope.. She is orthopedically stable. Plan will be for possible discharge home today once medicine has evaluated the patient. Appreciate medicine's input with regards to discharge. Patient has all medications at home as she was planned for a outpatient total knee arthroplasty. Patient was scheduled for outpatient therapy today but this was canceled and we will have case management reschedule this for next week. She will follow our postop instructions. Try to continue with nonsteroidal anti-inflammatory and Tylenol for primary pain control. Limit use of narcotics at home.
--- NOTE | 2020-12-22 08:29 | PCM.PN.HOSP ---
Patient Problems: Active and Suspected Problems (Last Reviewed 12/13/20 @ 10:[address] Nahun Pink MD) Hypotension (Acute) Near syncope (Acute) Status post total left knee replacement (Acute) Subjective: Feeling well. No further syncopal events. Vitals/I&O's: Vital Signs Temp Pulse Resp BP Pulse Ox 36.7 C 76 18 128/81 H 97 12/22/20 08:00 12/22/20 08:00 12/22/20 08:00 12/22/20 08:00 12/22/20 08:00 Oxygen Flow Rate (L/min) 6 Oxygen Delivery Method Room Air Weight: 80.603 kg Body Mass Index (BMI) 33.5 Orthostatic Vital Signs Start: 12/21/20 14:19 Freq: q24h Status: Active Protocol: Activity Type Activity Date Activity User E-Sign Co-Sign Detail Recorded Client Recorded Date Recorded By Document 12/22/20 06:19 [facility] [id number] 12/22/20 06:20 [facility] 12/22/20 06:19 Orthostatic Vitals Standing -Blood Pressure (90/60-120/80 mm Hg) 136/75 H -Extremity Use Right Arm -Pulse Rate (60-100 beats/min) 92 Sitting -Blood Pressure (90/60-120/80 mm Hg) 124/59 H -Extremity Use Right Arm -Pulse Rate (60-100 beats/min) 100 Lying -Blood Pressure (90/60-120/80 mm Hg) 120/69 -Extremity Use Right Arm -Pulse Rate (60-100 beats/min) 78 Intake and Output for Last 24 Hours 12/20/20 12/21/20 12/22/20 23:59 23:59 23:59 Intake Total 3984.5 / 3984.5 5179 / 5179 Output Total 900 / 900 3550 / 4750 2550 / 2550 Balance 3084.5 / 3084.5 1629 / 429 -2550 / -2550 General: Alert, - - up walking with therapy. No unsteadiness. HEENT: Atraumatic, Normocephalic Microbiology Past 72 Hours 12/19/20 09:45 Interface Orders SARS-CoV-2 Antigen (Rapid) - Final Laboratory Results 12/21/20 08:04: Sodium 140, Potassium 4.1, Chloride 107, Carbon Dioxide 30.0, Anion Gap 3 L, BUN 11, Creatinine 0.74, Estim Creat Clear Calc 41.76, Est GFR (MDRD) Af Amer 101, Est GFR (MDRD) Non-Af 83, BUN/Creatinine Ratio 14.8, Glucose 132 H, Calcium 8.5 12/21/20 14:45: Hgb 11.3 L, Hct 35.5 L 12/22/20 05:32: Hgb 12.1, Hct 38.5 Current Medications Acetaminophen (Acetaminophen 500 Mg Tablet) 1,000 mg PO Q8 [facility] Last Admin: 12/22/20 06:24 Dose: 1,000 mg Documented by: Aspirin (Aspirin 81 Mg Tab.Chew) 81 mg PO BID [facility] Last Admin: 12/21/20 21:17 Dose: 81 mg Documented by: Sodium Chloride () 250 mls @ 15 mls/hr IV .[id number] PRN PRN Reason: Saline Flush Ketorolac Tromethamine (Ketorolac 30 Mg/Ml Syringe) 30 mg IV X1 PRN PRN Reason: Pain Score 4-10 Stop: 12/25/20 07:10 Last Admin: 12/21/20 19:21 Dose: 30 mg Documented by: Morphine Sulfate (Morphine 2 Mg/Ml Syringe) 1 mg IV Q4H PRN PRN PRN Reason: Pain Score 6-10 Ondansetron HCl (Ondansetron 4 Mg/2 Ml Vial) 4 mg IV Q8H PRN PRN PRN Reason: NAUSEA Oxycodone HCl (Oxycodone 5 Mg Tablet) 5 mg PO Q8H PRN PRN PRN Reason: Pain Score 6-10 Senna/Docusate Sodium (Senna/Docusate Sodium 1 Tablet) 2 tablet PO BID [facility] Last Admin: 12/21/20 21:18 Dose: 2 tablet Documented by: Sodium Chloride (0.9% Saline Lock 10 Ml Syringe) 10 - 40 ml IV UD PRN PRN Reason: SALINE FLUSH Last Admin: 12/21/20 19:21 Dose: 10 ml Documented by: STROKE Vital Signs/Narrative: Vital Signs Temp Pulse Pulse Pulse Pulse Resp BP 12/22/20 08:00 36.7 C 76 18 128/81 H 12/22/20 06:19 78 100 92 BP BP BP Pulse Ox 12/22/20 08:00 97 12/22/20 06:19 120/69 124/59 H 136/75 H Medical Necessity - Tobacco Use Smoking Status: Never smoker Tobacco Use: Non-smoker Assessment/Plan All Active Problems (Last Reviewed 12/13/20 @ 10:[address] Nahun Pink MD) Hypotension (Acute) Near syncope (Acute) Status post total left knee replacement (Acute) 1. syncope likely vasovagal given surgery, pain, mild anemia and medications orthostatics negative no additional work up needed, medically stable for discharge 2. s/p left knee replacement: mgmt per orthopaedics Inpatient E&M: 99448 Subs Hosp L1
[2020-12-22] MEDS: 0.9% Normal Saline 1,000 ML 500 ML IV (08:40)
--- NOTE | 2020-12-22 09:02 | NURSING ---
pt ambulatory in BR w/walker and SBA, while walking to therapy room, pt became light headed staff assisted her to bed in therapy room, pt never lost consciouness, skin was cool but dry-therapy staff took vitals, standing, sitting then lying and after pt was laid flat, b/p continued to drop and pt became slightly nauseated, legs elevated per their staff and after about 30 minutes, pt improved enough to return to her own room and was assisted to bed-will monitor
[2020-12-22] MEDS: Aspirin 81 MG TAB.CHEW PO ×2 (11:46→20:59)
--- NOTE | 2020-12-22 13:23 | CT_ITS ---
STUDY: CTA CHEST REASON FOR EXAM: Female, 65 years old. High potential and syncopal episode. Recent total knee replacement. RADIATION DOSAGE (If Supplied By Facility): CTDIvol = ( 11.196 ) mGy, DLP = ( 408.89 ) mGycm TECHNIQUE: The examination was performed with the intravenous administration of IV 100mL Isovue-370. Post-processing of the angiographic images was performed, with multiplanar reformation and 3D reconstruction. Individualized dose optimization techniques were used for this CT. COMPARISON: None. FINDINGS: Normal enhancement of the main pulmonary artery and right and left pulmonary arteries. Normal enhancement of the bilateral peripheral pulmonary arteries. There is no demonstrated pulmonary embolism. Normal thoracic aorta and visualized great vessels. There is no demonstrated aortic dissection. Normal heart and pericardium. Normal mediastinum. There are calcified right hilar lymph nodes. Normal visualized trachea and bronchi. The lungs are well expanded. Normal pulmonary parenchyma. Normal pleura. Normal chest wall structures. There are degenerative changes of thoracic spine. Normal visualized upper abdomen. CT/CTA Chest W/WO Contrast IMPRESSION: No acute abnormality is seen. Electronically Signed: Tim Uribe MD at 14:34 EDT , Service support ,
--- NOTE | 2020-12-22 13:24 | EKG12_ITS ---
Test Reason : Blood Pressure : / mmHG Vent. Rate : 089 BPM Atrial Rate : 089 BPM P-R Int : 174 ms QRS Dur : 080 ms QT Int : 348 ms P-R-T Axes : 050 016 006 degrees QTc Int : 423 ms Normal sinus rhythm Normal ECG Confirmed by STEPHANI RODRIGES, RACHELL ([id number]), desk editor CLARIBEL PABLO ([id number] on 12/28/2020 1:52:18 PM Referred By: Terry Flores Confirmed By:RACHELL STYLES MD
--- NOTE | 2020-12-22 15:48 | CASEMGMT ---
Per Ortho note, CM to reschedule outpt therapy. TC to [facility] and scheduled appt for pt on Friday at 2pm. Should pt not dc, this CM will cancel Friday morning. Pt and aware of appt.
[2020-12-22] MEDS: Senna/Docusate Sodium 1 Tablet 2 TABLET PO (20:59)
[2020-12-23] VITALS (7 sets, daily range): BP systolic 77–127; BP diastolic 45–80; PULSE 78–100; RESP 16; TEMP 36.8–37; O2SAT 96–98
[2020-12-23] MEDS: oxyCODONE 5 MG Tablet PO (02:32)
[2020-12-23] MEDS: Acetaminophen 500 MG Tablet 1000 MG PO (05:44)
[2020-12-23 08:04] LABS: Absolute Lymphocyte Count 2.94 X10^3/uL (0.83-4.51); Absolute Neutrophil Count 7.5 X10^3/uL (2.0-7.7); Basophil# 0.03 X10^3/uL; Basophil% 0.3 % (0-1); Eosinophil# 0.04 X10^3/uL; Eosinophils% 0.3 % (0-5); Hematocrit 40.8 % (37-47); Hemoglobin 12.8 g/dL (12.0-15.0); Lymphocyte # 2.94 X10^3/ul (0.83-4.51); Lymphocyte % 25.6 % (19-41); Mean Corp Hgb Conc 31.4 g/dL (32-36); Mean Corpuscular Hgb 28.9 pg (27.0-32.0); Mean Corpuscular Volume 92.1 fL (81-99); Monocyte# 0.98 X10^3/uL; Monocyte% 8.5 % (0-10); NRBC Flagged by Analyzer 0 % (0-5); Neutrophil # 7.45 X10^3/uL (2.7-7.7); Platelet Count 292 K/mm3 (150-450); RBC Distribution Width CV 13.1 % (11.6-14.6); RBC Distribution Width SD 44.2 fl (35.1-43.9); Red Blood Count 4.43 M/mm3 (4.2-5.4); White Blood Count 11.5 K/mm3 (4.4-11.0)
[2020-12-23 08:09] LABS: Anion Gap 1 (5-15); BUN 7 mg/dL (7-18); BUN/Creat Ratio 9.2 RATIO (10-20); Calcium,Total 8.7 mg/dL (8.5-10.1); Chloride 106 mmol/L (98-107); Creatinine, Serum 0.76 mg/dL (0.55-1.02); EST Glomerular Filtration Rate 81 mL/min (>60); Est Glom Filt Rate - Afr Amer 98 mL/min (>60); Estimated Creatinine Clearance 41.76 ml/min; Glucose 104 mg/dL (74-106); Potassium 4.1 mmol/L (3.5-5.1); Sodium Level 140 mmol/L (136-145)
[2020-12-23] MEDS: 0.9% Normal Saline 1,000 ML 999 ML IV (08:44)
[2020-12-23] MEDS: Aspirin 81 MG TAB.CHEW PO (08:45)
[2020-12-23] MEDS: Ketorolac 30 MG/ML Syringe IV (08:46)
--- NOTE | 2020-12-23 10:11 | PCM.PN.ORT ---
Patient Problems: Active and Suspected Problems (Last Reviewed 12/13/20 @ 10:[address] Nahun Pink MD) Hypotension (Acute) Near syncope (Acute) Status post total left knee replacement (Acute) Subjective: The patient was sitting in bedside chair upon examination. Patient underwent what was to be an outpatient left total knee arthroplasty on December 20, 2020. Patient had to stay secondary to nausea and vomiting day of surgery postoperatively. Since then she has had daily episodes of vasovagal episodes. She was doing well yesterday morning upon evaluation but once she participated in physical therapy she had near syncope episode. She has been getting plenty of IV fluids. Sitting in the chair this morning she states she does not have feeling of dizziness or lightheadedness. When she was up earlier to use the restroom she did have some slight dizziness. They did do orthostatic vitals this morning which were positive. Lab work is unremarkable with hemoglobin 12.8. Patient preoperatively underwent stress test and echocardiogram in December 2020. She is followed by Dr. Pink. Patient states she did have similar symptom after her stress test. Otherwise she has not experienced this at home. Patient has been placed on telemetry had EKG, CTA which was negative for pulmonary embolism, and updated lab work. Case has been discussed with hospitalist. Orthopedically the knee is doing well. Her pain is well controlled. She had to take her first oxycodone overnight which controlled her pain in the knee. Objective: Vital signs stable and afebrile. Patient is able to plantarflex and dorsiflex actively. Sensation is intact to light touch to saphenous, sural, superficial and deep peroneal, and tibial distribution. Dressing has remained stable with drainage throughout the middle one third with no increase, remaining dressing is clean dry and intact. Negative Homans bilaterally, negative signs and symptoms of DVT. - Physical Exam Vitals/I&O's: Vital Signs Temp Pulse Resp BP Pulse Ox 98.2 F 78 16 100/60 98 12/23/20 08:52 12/23/20 08:52 12/23/20 08:52 12/23/20 08:52 12/23/20 08:52 Oxygen Flow Rate (L/min) 6 Oxygen Delivery Method Room Air Weight: 80.603 kg Body Mass Index (BMI) 33.5 Orthostatic Vital Signs Start: 12/21/20 14:19 Freq: 0600 Status: Active Protocol: Activity Type Activity Date Activity User E-Sign Co-Sign Detail Recorded Client Recorded Date Recorded By Document 12/23/20 05:46 [facility] [id number] 12/23/20 05:49 [facility] 12/23/20 05:46 Orthostatic Vitals Standing -Blood Pressure (90/60-120/80) 77/45 L -Extremity Use Right Arm -Pulse Rate (60-100) 80 Sitting -Blood Pressure (90/60-120/80) 98/50 L -Extremity Use Right Arm -Pulse Rate (60-100) 85 Lying -Blood Pressure (90/60-120/80) 113/76 -Extremity Use Right Arm -Pulse Rate (60-100) 79 Intake and Output for Last 24 Hours 12/21/20 12/22/20 12/23/20 23:59 23:59 23:59 Intake Total 5179 / 5179 3200 / 3200 Output Total 3550 / 4750 2550 / 4350 3100 / 3100 Balance 1629 / 429 650 / -1150 -3100 / -3100 General: Alert, Oriented x3, Cooperative, No apparent distress Laboratory Results 12/23/20 05:50: Cortisol Pending 12/23/20 05:50: WBC 11.5 H, RBC 4.43, Hgb 12.8, Hct 40.8, MCV 92.1, MCH 28.9, MCHC 31.4 L, RDW Std Deviation 44.2 H, RDW Coeff of Marli 13.1, Plt Count 292, MPV 10.0, Immature Gran % (Auto) 0.300, Neut % (Auto) 65.0, Lymph % (Auto) 25.6, [place] % (Auto) 8.5, Eos % (Auto) 0.3, Baso % (Auto) 0.3, Absolute Neuts (auto) 7.5, Absolute Lymphs (auto) 2.94, Nucleated RBC % 0 12/23/20 05:50: Sodium 140, Potassium 4.1, Chloride 106, Carbon Dioxide 33.0 H, Anion Gap 1 L, BUN 7, Creatinine 0.76, Estim Creat Clear Calc 41.76, Est GFR (MDRD) Af Amer 98, Est GFR (MDRD) Non-Af 81, BUN/Creatinine Ratio 9.2 L, Glucose 104, Calcium 8.7 Current Medications Acetaminophen (Acetaminophen 500 Mg Tablet) 1,000 mg PO Q8 [facility] Last Admin: 12/23/20 05:44 Dose: 1,000 mg Documented by: Aspirin (Aspirin 81 Mg Tab.Chew) 81 mg PO BID [facility] Last Admin: 12/23/20 08:45 Dose: 81 mg Documented by: Sodium Chloride () 250 mls @ 15 mls/hr IV .[id number] PRN PRN Reason: Saline Flush Ketorolac Tromethamine (Ketorolac 30 Mg/Ml Syringe) 30 mg IV X1 PRN PRN Reason: Pain Score 4-10 Stop: 12/25/20 07:10 Last Admin: 12/23/20 08:46 Dose: 30 mg Documented by: Ondansetron HCl (Ondansetron 4 Mg/2 Ml Vial) 4 mg IV Q8H PRN PRN PRN Reason: NAUSEA Senna/Docusate Sodium (Senna/Docusate Sodium 1 Tablet) 2 tablet PO BID [facility] Last Admin: 12/23/20 08:45 Dose: Not Given Documented by: Sodium Chloride (0.9% Saline Lock 10 Ml Syringe) 10 - 40 ml IV UD PRN PRN Reason: SALINE FLUSH Last Admin: 12/21/20 19:21 Dose: 10 ml Documented by: Medical Necessity - Tobacco Use Smoking Status: Never smoker Tobacco Use: Non-smoker Assessment/Plan All Active Problems (Last Reviewed 12/13/20 @ 10:[address] Nahun Pink MD) Hypotension (Acute) Near syncope (Acute) Status post total left knee replacement (Acute) 1. S/P left total knee arthroplasty POD #3 2. Continue Pain Medications: Tylenol and OxyIR. Try to limit any oxycodone at this time. Pain is been controlled 3. DVT Prophylaxis: Take 81 mg aspirin twice daily for 4 weeks postoperatively for DVT prophylaxis 4. PT/OT: Weightbearing as tolerated 5. H & H: Currently 12.8/40.8. Postoperative anemia secondary to acute blood loss from surgery and possible hemodilution without any intra operative complications. 6. Reactive leukocytosis: Trending down and currently 11.5, afebrile. Patient did receive Decadron intraoperatively 7. Encouraged Incentive Spirometry 8. Continue postoperative medical management per medicine: Patient did have a near syncope episode yesterday with physical therapy. Orthostatic vitals were obtained this morning which were positive. They are going to be repeating these vitals again. Case was discussed with hospitalist and concern for possible pots syndrome. Patient is still currently on telemetry. Her CTA was negative for pulmonary embolism. She had a cardiac work-up prior to surgery which was essentially normal. She is followed by Dr. Pink. After discussing with hospitalist, he is waiting on lab work to determine appropriate treatment and discharge planning. Will essentially require follow-up with primary care physician and technician inventory specialist outpatient [facility]. 9. Disposition: Orthopedically stable, we are currently in the process of determining patient's cause of the syncope episodes and vasovagal syndrome. She has had positive orthostatic vitals. Hospitalist is currently on board managing. At this time patient's medical problems are keeping the patient in the hospital. She is doing well from the knee replacement standpoint. Her pain is been well controlled. We are waiting on lab work for determination of discharge. Patient may require an additional stay tonight. Case was discussed in detail with the hospitalist. He will contact us once lab work has returned for continued treatment.
--- NOTE | 2020-12-23 12:01 | PN_ITS ---
Patient Problems: Active and Suspected Problems (Last Reviewed 12/13/20 @ 10:[address] Nahun Pink MD) Hypotension (Acute) Near syncope (Acute) Status post total left knee replacement (Acute) Subjective: Feeling well. Patient orthostats checked this morning are positive. Rechecked them later and patient was otherwise feeling well and asymptomatic though her pressure did drop when she sat up but she went back up to the 120s when she stood up. Vitals/I&O's: Vital Signs Temp Pulse Resp BP Pulse Ox 36.8 C 87 16 126/70 H 98 12/23/20 08:52 12/23/20 10:36 12/23/20 08:52 12/23/20 10:36 12/23/20 08:52 Oxygen Flow Rate (L/min) 6 Oxygen Delivery Method Room Air Weight: 80.603 kg Body Mass Index (BMI) 33.5 Orthostatic Vital Signs Start: 12/21/20 14:19 Freq: 0600 Status: Active Protocol: Activity Type Activity Date Activity User E-Sign Co-Sign Detail Recorded Client Recorded Date Recorded By Document 12/23/20 10:36 TDW [id number] 12/23/20 10:37 TDW 12/23/20 10:36 Orthostatic Vitals Standing -Blood Pressure (90/60-120/80 mm Hg) 127/70 H -Extremity Use Right Arm -Pulse Rate (60-100 beats/min) 98 Sitting -Blood Pressure (90/60-120/80 mm Hg) 108/50 L -Extremity Use Right Arm -Pulse Rate (60-100 beats/min) 95 Lying -Blood Pressure (90/60-120/80 mm Hg) 126/70 H -Extremity Use Right Arm -Pulse Rate (60-100 beats/min) 87 Intake and Output for Last 24 Hours 12/21/20 12/22/20 12/23/20 23:59 23:59 23:59 Intake Total 5179 / 5179 3200 / 3200 1250 / 1250 Output Total 3550 / 4750 2550 / 4350 3800 / 3800 Balance 1629 / 429 650 / -1150 -2550 / -2550 General: Alert, No apparent distress HEENT: Atraumatic, Normocephalic Oral: Moist Mucosa, No Gingival or Mucosal Lesions/ Ulcerations Neck: No Nodes, Thyroid Normal Size and Texture Lungs: Clear to auscultation, Normal air movement, No rhonchi, No wheeze Cardiovascular: Regular rate, Regular Rhythm, Normal S1, Normal S2 Abdomen: Bowel Sounds Present, Soft, Non Tender, Non-Distended Laboratory Results 12/23/20 05:50: Cortisol Pending 12/23/20 05:50: WBC 11.5 H, RBC 4.43, Hgb 12.8, Hct 40.8, MCV 92.1, MCH 28.9, MCHC 31.4 L, RDW Std Deviation 44.2 H, RDW Coeff of Marli 13.1, Plt Count 292, MPV 10.0, Immature Gran % (Auto) 0.300, Neut % (Auto) 65.0, Lymph % (Auto) 25.6, [place] % (Auto) 8.5, Eos % (Auto) 0.3, Baso % (Auto) 0.3, Absolute Neuts (auto) 7.5, Absolute Lymphs (auto) 2.94, Nucleated RBC % 0 12/23/20 05:50: Sodium 140, Potassium 4.1, Chloride 106, Carbon Dioxide 33.0 H, Anion Gap 1 L, BUN 7, Creatinine 0.76, Estim Creat Clear Calc 41.76, Est GFR (MDRD) Af Amer 98, Est GFR (MDRD) Non-Af 81, BUN/Creatinine Ratio 9.2 L, Glucose 104, Calcium 8.7 Current Medications Acetaminophen (Acetaminophen 500 Mg Tablet) 1,000 mg PO Q8 [facility] Last Admin: 12/23/20 05:44 Dose: 1,000 mg Documented by: Aspirin (Aspirin 81 Mg Tab.Chew) 81 mg PO BID [facility] Last Admin: 12/23/20 08:45 Dose: 81 mg Documented by: Sodium Chloride () 250 mls @ 15 mls/hr IV .[id number] PRN PRN Reason: Saline Flush Ketorolac Tromethamine (Ketorolac 30 Mg/Ml Syringe) 30 mg IV X1 PRN PRN Reason: Pain Score 4-10 Stop: 12/25/20 07:10 Last Admin: 12/23/20 08:46 Dose: 30 mg Documented by: Ondansetron HCl (Ondansetron 4 Mg/2 Ml Vial) 4 mg IV Q8H PRN PRN PRN Reason: NAUSEA Senna/Docusate Sodium (Senna/Docusate Sodium 1 Tablet) 2 tablet PO BID [facility] Last Admin: 12/23/20 08:45 Dose: Not Given Documented by: Sodium Chloride (0.9% Saline Lock 10 Ml Syringe) 10 - 40 ml IV UD PRN PRN Reason: SALINE FLUSH Last Admin: 12/21/20 19:21 Dose: 10 ml Documented by: STROKE Vital Signs/Narrative: Vital Signs Temp Pulse Pulse Pulse Pulse Resp BP 12/23/20 10:36 87 95 98 12/23/20 08:52 36.8 C 78 16 100/60 12/23/20 08:26 100 BP BP BP Pulse Ox 12/23/20 10:36 126/70 H 108/50 L 127/70 H 12/23/20 08:52 98 12/23/20 08:26 Medical Necessity - Tobacco Use Smoking Status: Never smoker Tobacco Use: Non-smoker Assessment/Plan All Active Problems (Last Reviewed 12/13/20 @ 10:[address] Nahun Pink MD) Hypotension (Acute) Near syncope (Acute) Status post total left knee replacement (Acute) 1. syncope Suspect orthostatic hypotension but certainly could still be a component of vasovagal. Had a long discussion with the patient and she denies any history of this other than when she had her stress test. Told her that it is possible that she may been having issues with her blood pressure dropping when she would stand up at other times but may be more pronounced and more symptomatic now. But given that her recent orthostats were unremarkable though did drop when she sat up but she was asymptomatic. I feel the patient can be discharged home. I did recommend to the patient that she get up slowly if she needs to get up in the spring out of bed and to add salt to her diet. I do not feel that this is related with narcotics and so those can be resumed. This information was relayed to Efra Patterson. If symptoms do persist, then I do recommend outpatient cardiology evaluation for tilt table testing. Patient medically stable for discharge. 2. s/p left knee replacement: mgmt per orthopaedics Inpatient E&M: 85537 Subs Hosp L2
--- NOTE | 2020-12-23 12:06 | PCM.DC.SUM ---
Discharge Date and Diagnosis - Problem List Patient Problems: Active and Suspected Problems (Last Reviewed 12/13/20 @ 10:[address] Nahun Pink MD) Hypotension (Acute) Near syncope (Acute) Status post total left knee replacement (Acute) Date of Admission: 12/20/20 Date of Discharge: 12/23/20 - Primary Discharge Diagnosis Acute Problems: Active Problems (Last Reviewed 12/13/20 @ 10:[address] Nahun Pink MD) Hypotension (Acute) Near syncope (Acute) Status post total left knee replacement (Acute) - Secondary Discharge Diagnosis Chronic Problems: Chronic Problems (Last Reviewed 12/13/20 @ 10:[address] Nahun Pink MD) Arthritis (Chronic) Hyperlipidemia (Chronic) Hospital Course and Treatment Medicine Consult Operations: total knee replacement Summary of Care Provided: Patient is a 65-year-old female who has had ongoing left knee pain. After failing conservative measures, the patient opted to proceed with a left total knee arthroplasty. The patient underwent the above-stated procedure on December 20, 2020. Patient did receive perioperative antibiotics. Intraoperatively was uneventful. For details please see dictated operative note. The patient was placed in thigh-high teds, bilateral SCDs, and experience significant nausea/vomiting postoperatively. Patient was initially scheduled for an outpatient total knee arthroplasty but had to be admitted. Patient was admitted to the 3rd floor at [facility] for observation. The patient's pain was managed with the use of IV and p.o. pain medications. Patient participated in physical therapy. Patient experienced orthostatic hypotension. Medicine was consulted for assistance in management of the patient postoperatively. Patient received IV fluids and had to stay an additional 2 days in the hospital. Patient underwent a CTA in the hospital which was negative for pulmonary embolism. Preoperatively patient had cardiac workup which was essentially negative. She underwent echocardiogram and stress test. She did have similar experience of dizziness after the stress test. Patient's lab work remained stable with regards to her hemoglobin. She did have positive orthostatic vitals on separate days. Medicine did feel it was okay for discharge and patient was discharged on postoperative day 3 to home. Patient already had postoperative medications as this was initially scheduled as an outpatient total knee arthroplasty. Medicine gave instructions for the patient to get up slowly from a seated or lying position and to increase her sodium intake. Patient's pain was well managed while in the hospital and only required 1 dose of narcotic. She is currently on aspirin 81 mg twice daily for DVT prophylaxis. She has primarily been using Tylenol extra strength 500 mg for pain control.Patient will follow up with [facility] per postop instructions for reassessment. Patient will also follow-up with her primary care physician postoperatively. 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 This dictation was created using voice recognition software. Phonetic and/or grammatical errors may exist. Patient Problems: Active and Suspected Problems (Last Reviewed 12/13/20 @ 10:[address] Nahun Pink MD) Hypotension (Acute) Near syncope (Acute) Status post total left knee replacement (Acute) - Physical Exam Vitals/I&O's: Vital Signs Temp Pulse Resp BP Pulse Ox 98.2 F 87 16 126/70 H 98 12/23/20 08:52 12/23/20 10:36 12/23/20 08:52 12/23/20 10:36 12/23/20 08:52 Oxygen Flow Rate (L/min) 6 Oxygen Delivery Method Room Air Weight: 80.603 kg Body Mass Index (BMI) 33.5 Orthostatic Vital Signs Start: 12/21/20 14:19 Freq: 0600 Status: Active Protocol: Activity Type Activity Date Activity User E-Sign Co-Sign Detail Recorded Client Recorded Date Recorded By Document 12/23/20 10:36 TDW [id number] 12/23/20 10:37 TDW 12/23/20 10:36 Orthostatic Vitals Standing -Blood Pressure (90/60-120/80) 127/70 H -Extremity Use Right Arm -Pulse Rate (60-100) 98 Sitting -Blood Pressure (90/60-120/80) 108/50 L -Extremity Use Right Arm -Pulse Rate (60-100) 95 Lying -Blood Pressure (90/60-120/80) 126/70 H -Extremity Use Right Arm -Pulse Rate (60-100) 87 Intake and Output for Last 24 Hours 12/21/20 12/22/20 12/23/20 23:59 23:59 23:59 Intake Total 5179 / 5179 3200 / 3200 1250 / 1250 Output Total 3550 / 4750 2550 / 4350 3800 / 3800 Balance 1629 / 429 650 / -1150 -2550 / -2550 Laboratory Results 12/23/20 05:50: Cortisol Pending 12/23/20 05:50: WBC 11.5 H, RBC 4.43, Hgb 12.8, Hct 40.8, MCV 92.1, MCH 28.9, MCHC 31.4 L, RDW Std Deviation 44.2 H, RDW Coeff of Marli 13.1, Plt Count 292, MPV 10.0, Immature Gran % (Auto) 0.300, Neut % (Auto) 65.0, Lymph % (Auto) 25.6, [place] % (Auto) 8.5, Eos % (Auto) 0.3, Baso % (Auto) 0.3, Absolute Neuts (auto) 7.5, Absolute Lymphs (auto) 2.94, Nucleated RBC % 0 12/23/20 05:50: Sodium 140, Potassium 4.1, Chloride 106, Carbon Dioxide 33.0 H, Anion Gap 1 L, BUN 7, Creatinine 0.76, Estim Creat Clear Calc 41.76, Est GFR (MDRD) Af Amer 98, Est GFR (MDRD) Non-Af 81, BUN/Creatinine Ratio 9.2 L, Glucose 104, Calcium 8.7 Current Medications Acetaminophen (Acetaminophen 500 Mg Tablet) 1,000 mg PO Q8 [facility] Last Admin: 12/23/20 05:44 Dose: 1,000 mg Documented by: Aspirin (Aspirin 81 Mg Tab.Chew) 81 mg PO BID [facility] Last Admin: 12/23/20 08:45 Dose: 81 mg Documented by: Sodium Chloride () 250 mls @ 15 mls/hr IV .[id number] PRN PRN Reason: Saline Flush Ketorolac Tromethamine (Ketorolac 30 Mg/Ml Syringe) 30 mg IV X1 PRN PRN Reason: Pain Score 4-10 Stop: 12/25/20 07:10 Last Admin: 12/23/20 08:46 Dose: 30 mg Documented by: Ondansetron HCl (Ondansetron 4 Mg/2 Ml Vial) 4 mg IV Q8H PRN PRN PRN Reason: NAUSEA Senna/Docusate Sodium (Senna/Docusate Sodium 1 Tablet) 2 tablet PO BID [facility] Last Admin: 04/17/21 08:45 Dose: Not Given Documented by: Sodium Chloride (0.9% Saline Lock 10 Ml Syringe) 10 - 40 ml IV UD PRN PRN Reason: SALINE FLUSH Last Admin: 12/21/20 19:21 Dose: 10 ml Documented by: Discharge Diet: No Restrictions Discharge Activity: May Not Drive May shower in (days): 1 - Okay to shower if dressing is intact to skin. Turn dressing away from water. Do not submerge underwater for 6 weeks postoperatively. Ice area for (Minutes): 20 - every hour while awake. Weight Bearing Status: Weight bearing as tolerated Keep extremity elevated above heart level: Operative Extremity Additional Activity Instructions:: Wear elastic stockings for 2 weeks after your surgery. Call your doctor if your incision/area has: Continuous Slow Oozing, Sudden Increased Bleeding, Increased Pain/ Swelling, Increased Redness, Foul Smelling Discharge Call your doctor if you observe: Fever of 101 or Higher, Coldness, Increased Pain, Numbness or Tingling, Change in Color, Calf discomfort, Uncontrolled pain Remove Dressing in (days):: 4 - Okay to remove dressing on December 25, 2020 Home Medications: Medications to take at Discharge Calcium (Elemental) [Os-Erik 500] 500 mg PO DAILY@0800 12/06/20 Cholecalciferol (Vitamin D3) [Vitamin D3] 25 mcg PO DAILY 12/06/20 Diclofenac Sodium [Diclofenac Sodium ER] 100 mg PO DAILY 12/06/20 Multivit with Calcium,Iron,Min [Multiple Vitamins For Women] 2 each PO DAILY 12/06/20 Pravastatin Sodium 10 mg PO QHS 12/06/20 Sour Anderson Extract [Tart Anderson Extract] 1,200 mg PO DAILY 12/06/20 Acetaminophen [Tylenol] 1,000 mg PO Q8 tablet 12/21/20 Aspirin [Aspirin, Baby] 81 mg PO BID tab.chew 12/21/20 Oxycodone [Oxyir] 5 - 10 mg PO Q4H PRN PRN 5 Days tablet 12/21/20 Senna/Docusate Sodium [Senokot-S] 2 tablet PO BID tablet 12/21/20 Primary Care Physician: Lakesha Tellez DO [Primary Care Provider] - Please Follow Up With: Physical Therapy When: 12/25/20 @ 2 pm Please Follow Up With: Efra Landis PAChantaleC When: 4/28/21 @ 9:30 am Additional Instructions: Follow [facility] Post-op Instructions. Once postoperative dressing has been removed only use gentle soap and water over the incision. Do not use any ointments, Neosporin, salves, alcohol pads over the incision for 6 weeks postoperatively. Do not submerge underwater for 6 weeks postoperatively. Medical Necessity - Tobacco Use Smoking Status: Never smoker Tobacco Use: Non-smoker Meaningful Use Info Meaningful Use Diagnoses (Choose all that apply): None applicable
== END 2020-12-23 12:57 | disposition home or self-care (01) | DRG 470 ==
LOC: SDC 18:37 → MS3 18:37
PROVIDERS: Anesthesiology; Hospitalist; Physician Assistant Surgical; Admitting Provider Specialist; PCP Family Medicine; Referring Provider Specialist
PROC: 0SRD0JZ Replacement of Left Knee Joint with Synthetic Substitute, Open Approach (ICD-10-PCS; CPT 27447; principal; 2020-12-20 08:30)
DX: M17.0 Bilateral primary osteoarthritis of knee (principal); E78.00 Pure hypercholesterolemia, unspecified; I25.10 Atherosclerotic heart disease of native coronary artery without angina pectoris; Z79.899 Other long term (current) drug therapy; Z01.810 Encounter for preprocedural cardiovascular examination; R11.2 Nausea with vomiting, unspecified; D72.828 Other elevated white blood cell count; I95.1 Orthostatic hypotension
CPT/HCPCS: 36415; 71275; 73560; 78452; 80048; 82533; 82962; 83735; 85014; 85018; 85025; 85027; 87081; 87426; 93005; 93017; 93306; 97110; 97116; 97162; 97530; 99251; A9500; C1776; C9803; J7030; J7040; J7120; Q9967; A4216; G0463; J2405; J2785

== ENCOUNTER → 2022-07-24 | Outpatient (CLI) | payer MEDICARE, BC, SELFPAY ==
[2022-07-24 16:04] LABS: Absolute Lymphocyte Count 2.19 X10^3/uL (0.83-4.51); Basophil# 0.04 X10^3/uL; Basophil% 0.5 % (0-1); Eosinophil# 0.09 X10^3/uL; Eosinophils% 1.2 % (0-5); Hematocrit 47.3 % (37-47); Hemoglobin 15.8 g/dL (12.0-15.0); Lymphocyte # 2.19 X10^3/ul (0.83-4.51); Lymphocyte % 28.1 % (19-41); Mean Corp Hgb Conc 33.4 g/dL (32-36); Mean Corpuscular Volume 89.8 fL (81-99); Mean Platelet Vol. 10.1 fl (6.2-12.0); Monocyte# 0.48 X10^3/uL; Monocyte% 6.2 % (0-10); NRBC Flagged by Analyzer 0 % (0-5); Neutrophil # 4.97 X10^3/uL (2.7-7.7); Neutrophil % 63.7 % (47-70); Platelet Count 339 K/mm3 (150-450); RBC Distribution Width SD 42.8 fl (35.1-43.9); Red Blood Count 5.27 M/mm3 (4.2-5.4); White Blood Count 7.8 K/mm3 (4.4-11.0)
[2022-07-24 16:20] LABS: ALB/GLOB Ratio 1.2 RATIO (0.9-2.4); AST(SGOT) 20 U/L (15-37); Alanine Aminotransfer ALT/SGPT 34 U/L (13-56); Alkaline Phosphatase 76 U/L (45-117); Anion Gap 7 (5-15); BUN 15 mg/dL (7-18); BUN/Creat Ratio 22.6 RATIO (10-20); Calcium,Total 9.4 mg/dL (8.5-10.1); Chloride 101 mmol/L (98-107); Cholesterol 280 mg/dL (200); Creatinine, Serum 0.66 mg/dL (0.55-1.02); EST Glomerular Filtration Rate 94 mL/min (>60); Est Glom Filt Rate - Afr Amer 114 mL/min (>60); Globulin 3.3 g/dL (2.2-4.2); Glucose 84 mg/dL (74-106); High Density Lipoprotein 62 mg/dL; Potassium 4.2 mmol/L (3.5-5.1); Protein, Total 7.3 g/dL (6.4-8.2); Sodium Level 139 mmol/L (136-145); Triglycerides 162 mg/dL; Very Low Density Lipoprotein 32 mg/dL (5-40)
== END | disposition home or self-care (01) ==
LOC: LABSPEC 15:29
PROVIDERS: PCP Family Medicine; Visit Provider Family Medicine
DX: E78.5 Hyperlipidemia, unspecified (principal); Z51.81 Encounter for therapeutic drug level monitoring
CPT/HCPCS: 80053; 80061; 85025

== ENCOUNTER → 2022-08-21 | Outpatient (CLI) | payer MEDICARE, BC, SELFPAY ==
--- NOTE | 2022-08-21 12:36 | US_ITS ---
EXAM: US PELVIS TRANSABDOMINAL, COMPLETE CLINICAL INDICATION: LLQ PAIN TECHNIQUE: Transabdominal pelvic ultrasound was performed with grayscale and color Doppler imaging. This report was created using [employer] report [employer] technology. COMPARISON: None. FINDINGS: UTERUS/CERVIX: Thickened hyperechoic endometrial stripe measuring 11 mm. Suggest tissue diagnosis to exclude neoplastic process given advanced age of the patient. Anteverted uterus. Uterus measures 8.4 x 5.2 x 4.0 cm and contains no focal masses. Cervix is normal. RIGHT OVARY: Ovaries are not visualized potentially due to overlying bowel gas or positioning. No adnexal masses. LEFT OVARY: See above. FREE FLUID: No significant free pelvic fluid. BLADDER: Unremarkable as visualized. Wall is normal thickness for degree of distention. OTHER FINDINGS: Only transabdominal examination performed. Patient refused transvaginal examination. US/Pelvic (Non ) IMPRESSION: Thickened hyperechoic endometrial stripe measuring 11 mm. Suggest tissue diagnosis to exclude neoplastic process given advanced age of the patient. Electronically Signed: Macario Cm MD at 1:17 EST ,
--- NOTE | 2022-08-21 12:36 | CT_ITS ---
STUDY: CT ABDOMEN AND PELVIS WITHOUT CONTRAST REASON FOR EXAM: Female, 67 years old. LLQ PAIN RADIATION DOSAGE (If Supplied By Facility): CTDIvol = ( 15.41 ) mGy, DLP = ( 693.08 ) mGycm TECHNIQUE: Transaxial images were obtained from the dome of the diaphragm to the symphysis pubis without oral contrast, and without intravenous contrast. Sagittal and coronal images were reconstructed. Individualized dose optimization techniques were used for this CT. COMPARISON: None. FINDINGS: Minimal increase in the markings in the posterior medial segment of the right lower lobe suggestive of linear atelectasis and/or scarring. The visualized portions of the heart are within normal limits. Normal liver. Normal gallbladder and extrahepatic biliary system. Normal spleen. Normal pancreas. Normal bilateral adrenal glands. Punctate calculi in the lower pole calyces of the right kidney. Multiple tiny nonobstructive left intrarenal calculi. Normal visualized stomach. Normal small intestine. There are scattered colonic diverticula consistent with diverticulosis. The appendix is visualized and appears normal. Normal abdominal aorta. Normal inferior vena cava. Normal retroperitoneum. Normal urinary bladder. There is a 1.1 cm fat-containing nodule in the left ovary suggestive of a possible small dermoid. Normal abdominal wall. There are diffuse degenerative changes of the visualized lumbar spine. Status post right total hip replacement. Marked degree of joint space narrowing in the subchondral cysts in the left hip joint suggestive of possible avascular necrosis. Spinal stenosis at the L4-L5 level. Grade 1 anterior listhesis of L5 on S1 with spondylolysis of the pars interarticularis CT/Abdomen/Pelvis without Cont IMPRESSION: Minimal increased markings at the posterior segment of the right lower lobe suggestive of a atelectasis and/or scarring. Multiple tiny nonobstructing left intrarenal calculi. Punctate calculi in the lower pole calyces of the right kidney. Spinal stenosis at the L4-L5 level and grade 1 anterolisthesis of L5 on S1 with spondylolysis. Electronically Signed: Tim Uribe MD at 13:47 EST ,
== END | disposition home or self-care (01) ==
LOC: CT 12:34
PROVIDERS: PCP Family Medicine; Referring Provider Family Medicine; Visit Provider Family Medicine
DX: R10.32 Left lower quadrant pain (principal)
CPT/HCPCS: 74176; 76856

== ENCOUNTER → 2022-09-30 | Outpatient (CLI) | payer MEDICARE, BC, SELFPAY ==
[2022-09-30 16:08] LABS: LDH 226 U/L (84-246)
[2022-10-02 18:09] LABS: Cancer Antigen 125 13.1 U/mL (0.0-38.1); Carbohydrate AG 19-9 8 U/mL (0-35); Carcinoembryonic Antigen 2139 1.7 ng/mL (0.0-4.7)
== END | disposition home or self-care (01) ==
LOC: WOBLAB 14:51
PROVIDERS: PCP Family Medicine; Visit Provider Student in an Organized Health Care Education/Training Program
DX: N83.202 Unspecified ovarian cyst, left side (principal)
CPT/HCPCS: 36415; 82378; 83615; 86301; 86304

== ENCOUNTER 2022-12-05 05:53 | Day surgery (SDC) | payer MEDICARE, BC, SELFPAY ==
[2022-11-29 16:36] LABS: Hematocrit 45.7 % (37-47); Hemoglobin 14.8 g/dL (12.0-15.0); Mean Corp Hgb Conc 32.4 g/dL (32-36); Mean Corpuscular Hgb 29.1 pg (27.0-32.0); Mean Corpuscular Volume 89.8 fL (81-99); Mean Platelet Vol. 9.7 fl (6.2-12.0); Platelet Count 343 K/mm3 (150-450); RBC Distribution Width CV 12.5 % (11.6-14.6); RBC Distribution Width SD 41.8 fl (35.1-43.9); Red Blood Count 5.09 M/mm3 (4.2-5.4); White Blood Count 5.6 K/mm3 (4.4-11.0)
[2022-12-05] VITALS (9 sets, daily range): BP systolic 99–127; BP diastolic 55–89; PULSE 62–104; RESP 16; TEMP 36.1–37.1; O2SAT 4–100; BMI 33.0
--- NOTE | 2022-12-05 | FALS_PTH ---
PATIENT: DEONTE MULTANI LOC: [facility] [place] U#:[id number] AGE/SX: 67/F ROOM: RE12/05/[address]: Dr. Georgette Calhoun DO : 1955 BED: DIS: 12/05/2022 SPEC #: [id number] RECD: 12/05/22 14:14 STATUS: AYANNA RE #: [id number] BENI: 12/05/22 00:[address]: Georgette Calhoun DEPT: SURGICAL PATHOLOGY RECD BY: Pablo Dewitt ENTERED: 12/06/22 10:11 SP TYPE: FALL TUBES OTHR DR: Dr. Lakesha Tellez, Tissues: A - Endometrium, NOS B - Fallopian tube Procedures: Surgery Specimen Level II Surgery Specimen Level IV HEADER OPERATION: Diagnostic laparoscopy, bilateral salpingectomy PRE-OP DIAGNOSIS: Pelvic pain, ovarian cyst, thickened endometrial stripe TISSUE SUBMITTED: A ? Endometrial curettings and polyp, B ? Bilateral fallopian tubes MICROSCOPIC DIAGNOSIS A. Endometrial curettings and polyp: Polypoid fragments of endometrial tissue consistent with fragments of endometrial polyp with simple cystic endometrial hyperplasia without atypia. See comment. B. Bilateral fallopian tubes, salpingectomy: Bilateral fallopian tubes, no pathologic diagnosis. SJ:rg 12/09/2022 COMMENT A. The specimen almost entirely consists of fragments of polyp. MICROSCOPIC DESCRIPTION Slides are reviewed. GROSS DESCRIPTION A - Received in fixative is one container labeled with the patient's name and designated endometrial curettings and polyp. The specimen consists of multiple irregular fragments of pink-madrid soft tissue that in aggregate measure 5.0 x 4.0 x 0.6 cm. The specimen is totally submitted in three cassettes. B - Received in fixative is one container labeled with the patient's name and designated bilateral fallopian tubes. The specimen consists of two fallopian tubes with an average length of 6.0 cm and has an average diameter of 0.5 cm. Both fallopian tubes have normal fimbriated ends. No mass lesions are identified. Suture Gauger sections are submitted in two cassettes as follows: 1 - one fallopian tube, 2??the other fallopian tube. / AM:rivera 12/06/2022 TC:5 CPT: 24815 x2, [id number]
[2022-12-05] MEDS: Lactated Ringers 1,000 ML 15 ML IV (06:40)
--- NOTE | 2022-12-05 07:11 | PCM.HP.BLA ---
History and Physical Date of Admission: 12/05/22 HPI: 67-year-old female with pelvic pain, ovarian cyst, and thickened endometrial stripe plan for hysteroscopy, dilation curettage, diagnostic laparoscopy, possible left oophorectomy, bilateral salpingectomy. Denies headache or vision changes, chest pain or shortness of breath, nausea or vomiting, fevers or chills, diarrhea or constipation. 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 Hypercholesterolemia Surgical history: 1. Left foot surgery 2011 2. Right hip replacement 2015 3. Right knee replacement 2020 4. Left knee replacement 2020 5. Cataract removal 2016 No issues with anesthesia sector nausea and vomiting Medications: 1. Calcium and vitamin D 2. CoQ 10 3. Diclofenac 4. Vitamin 5. Pravastatin 6. Tramadol as needed Social history: Denies tobacco, alcohol, drug use Family history: Denies contributing family history Allergies: Phenytoin Review of system: Negative otherwise stated above Physical exam Blood pressure 126/89, heart rate 83, respiratory rate 16, temp 97.1 ?F, oxygen saturation 94% on room air General: No acute distress HEENT: Normal cephalic/atraumatic, PERRLA Cardiac: Regular rate and rhythm, no murmurs/rubs/gallops Respiratory: No increased effort, clear to auscultation bilaterally Abdomen: Soft, nontender, nondistended Extremities: No edema Neurologic: Cranial nerves II through XII grossly intact, no focal deficits Musculoskeletal: Strength 5 out of 5 throughout extremities Assessment/plan: 67-year-old female with pelvic pain, ovarian cyst, and thickened endometrial stripe plan for hysteroscopy, dilation curettage, diagnostic laparoscopy, possible left oophorectomy, bilateral salpingectomy. All risk, benefits, alternatives discussed with patient. Risk include but are not limited to: Risk of bleeding to the point of transfusion, infection, injury to surrounding tissue including bowel/bladder/uterine perforation/major abdominal vessels, VTE, ICU admission. Patient aware and consented.
--- NOTE | 2022-12-05 08:39 | PCM.OPRPT ---
Report of Operation Date of Procedure: 12/05/22 Pre-Operative Diagnosis: Thickened endometrial stripe, left-sided pelvic pain Post-Operative Diagnosis: Endometrial polyp, left-sided pelvic pain, extensive bowel adhesions Surgery/Procedure Performed:: Hysteroscopy, dilation and curettage, polypectomy. Laparoscopic bilateral salpingectomy, lysis of adhesions Description of Surgical Findings:: Normal-appearing external genitalia. No uterine descensus. Large endometrial polyp originating from the fundus. Normal-appearing bilateral fallopian tubes and normal-appearing ovaries. Small filmy adhesions of bowel to right pelvic sidewall. Extensive colonic adhesions to left pelvic sidewall. Type of Anesthesia: General Specimen's removed: Endometrial curettings, endometrial polyp, bilateral fallopian tubes Estimated Blood Loss (mL): 10 cc Fluids Replaced: 1100 cc Description of Procedure: Indication/risk/benefits: 67-year-old female with pelvic pain, ovarian cyst, and thickened endometrial stripe plan for hysteroscopy, dilation curettage, diagnostic laparoscopy, possible left oophorectomy, bilateral salpingectomy.? All risk, benefits, alternatives discussed with patient.? Risk include but are not limited to: Risk of bleeding to the point of transfusion, infection, injury to surrounding tissue including bowel/bladder/uterine perforation/major abdominal vessels, VTE, ICU admission.? Patient aware and consented. Procedure: Patient taken to the operating room and placed under general anesthesia. Patient placed in the dorsal lithotomy position and prepped and draped in usual sterile fashion. Pretty catheter placed. Weighted speculum placed in the posterior vagina and Becerra retractor used to visualize the cervix. Anterior lip of cervix grasped with single-tooth tenaculum. Cervix sequentially dilated. Hysteroscope placed through cervical canal and endometrial cavity inspected with findings above of polyp. Hysteroscope removed, polyp removed using polyp forceps. Curettage completed in 360 degree manner. Hysteroscope replaced, confirming removal of entire polyp. Hysteroscope removed. Sargis manipulator placed. Single-tooth tenaculum and weighted speculum removed. Gloves were changed and attention turned to the anterior abdominal wall. 5 mm transverse infraumbilical incision made with scalpel and abdomen entered under direct visualization. Abdomen insufflated. Right and left lower quadrant trocars placed under direct visualization. Inspection was completed noting the findings above. Careful adhesiolysis of left colonic adhesions was completed using laparoscopic scissors. Lysis of adhesions was extensive. This allowed visualization of left fallopian tube and ovary. Both ovaries were inspected and noted to be without cysts or abnormalities. Left loping tube was grasped at the fimbriated and removed along the mesosalpinx to the cornua using LigaSure device. Removed from the abdominal cavity. Right fallopian tube was grasped and removed along the mesosalpinx using the LigaSure device in a similar fashion. Further inspection of the left ovary for possible oophorectomy was completed. Left ovary appeared to be adhesed to the left pelvic sidewall with dense adhesions. Therefore decision to leave left ovary was made due to adhesions and normal appearance of the ovary. Likely that most pain is secondary to colonic adhesions. Dylan was placed and hemostasis was confirmed along the areas where adhesions were lysed and mesosalpinx. Abdomen desufflated and trocars removed. Skin closed with subcuticular stitch and skin glue. Sargis manipulator and Pretty catheter removed, cervix hemostatic. At the end of the procedure all needle, lap, sponge counts were correct. Urine output: 75 cc clear urine Complications None
--- NOTE | 2022-12-05 08:41 | DCINST_ITS ---
Discharge Instructions Diet Discharge Diet: No restrictions Activity Discharge Activity: Return to Normal Activity and May Shower May resume sexual activity in: 2 weeks Weight Bearing Status: Weight bearing as tolerated Lifting Restrictions: No greater than 15 pounds Dressing / Incision Call your doctor if your incision/area has: Continuous Slow Oozing, Increased Pain/ Swelling, Increased Redness and Foul Smelling Discharge Call your doctor if you observe: Fever of 101 or Higher, Inability to urinate, Using more than 1 pad per hour, Shortness of breath, Chest pain, Calf discomfort and Uncontrolled pain Cleanse incision/area with: Soap & Water and Keep Dressing Clean & Dry Follow Up Care Please Follow Up With: Georgette Calhoun DO When: 2 weeks post operative visit. Test Results: Test results from this visit will be discussed in further detail at your follow- up appointment, if applicable. Discharge Plan Admission Primary Reason for Your Visit: Dilation and curettage, laparoscopy Attending Provider: Georgette Calhoun Primary Care Provider: Lakesha Tellez Discharge Orders/Prescriptions Prescriptions: New oxycodone 5 mg tablet 5 mg PO Q6H PRN (Reason: pain (scale score 7-10)) 3 Days Qty: 12 0RF Continued cholecalciferol (vitamin D3) 50 mcg (2,000 unit) capsule 50 mcg PO DAILY coenzyme Q10 [CoQ-10] 100 mg capsule 100 mg PO DAILY diclofenac sodium 100 MG tablet extended release 24 hr 100 mg PO DAILY calcium carbonate 500 MG tablet 500 mg PO DAILY@0800 xfzypsjktmur-Qi-xydz-minerals 1 EACH tablet 2 each PO DAILY pravastatin 10 mg tablet 20 mg PO QHS Discontinued tramadol 50 mg tablet 50 mg PO DAILY Referrals / Follow Up: Lakesha Tellez DO [Primary Care Provider] - Disposition Disposition (needs filled in before D/C Order can be placed): Home, Self Care
== END 2022-12-05 12:34 | disposition home or self-care (01) ==
LOC: SDC 05:54 → AC 05:55
PROVIDERS: PCP Family Medicine; Referring Provider Student in an Organized Health Care Education/Training Program; Visit Provider Student in an Organized Health Care Education/Training Program
PROC: (CPT 49320; principal; 2022-12-05 07:15)
PROC: 0UDB8ZZ Extraction of Endometrium, Via Natural or Artificial Opening Endoscopic (ICD-10-PCS; CPT 58558; 2022-12-05 07:15)
DX: N85.01 Benign endometrial hyperplasia (principal); N73.6 Female pelvic peritoneal adhesions (postinfective); E78.00 Pure hypercholesterolemia, unspecified; E66.9 Obesity, unspecified; Z68.32 Body mass index [BMI] 32.0-32.9, adult; Z96.641 Presence of right artificial hip joint; Z96.653 Presence of artificial knee joint, bilateral
CPT/HCPCS: 58661; 58558; 36415; 85027; 86850; 86900; 86901; 88302; 88305; 93005; J7120; J2405

== ENCOUNTER 2023-01-15 06:36 | Day surgery (SDC) | payer MEDICARE, BC, SELFPAY ==
[2023-01-15] VITALS (7 sets, daily range): BP systolic 119–140; BP diastolic 79–86; PULSE 74–93; RESP 16–18; TEMP 36.4–36.5; O2SAT 96–100; BMI 32.9
[2023-01-15] MEDS: Lactated Ringers 1,000 ML 15 ML IV (07:02)
--- NOTE | 2023-01-15 07:43 | H&P.OPEN ---
[facility] - General General Date of Admission: 01/15/23 HPI Narrative DEONTE MULTANI, is a 67 F who presents for screening colonoscopy. Patient never had previous colonoscopy. Patient denies any family history of colon cancer. Patient denies any chronic nausea/vomiting/reflux. Patient does admit to some lower left quadrant abdominal pain which she had a laparoscopy with Dr. Calhoun for states there was some scar tissue in that area she was able to get some of it but not all of it patient states that it was better for a little bit but has gone back to previous. Patient has bowel movements about every other day, denies any blood. [facility] Medical History (Updated 01/10/23 @ 12:14 by Annabelle Cota) [facility] Cardiology follow-up encounter High cholesterol History of echocardiogram History of stress test Hyperlipidemia Hypertension Leg cramps Non-smoker Obesity Osteoarthritis Post-menopausal Wears glasses Home Medications calcium carbonate 500 mg calcium (1,250 mg) tablet 500 mg PO DAILY@0800 12/06/20 [History Last Taken Unknown] diclofenac sodium 100 mg tablet,extended release 24 hr 100 mg PO DAILY 12/06/20 [History Last Taken Unknown] ppukcgqbhykx-Or-rmcj-minerals 2 each PO DAILY 12/06/20 [History Last Taken Unknown] cholecalciferol (vitamin D3) 50 mcg (2,000 unit) capsule 50 mcg PO DAILY 11/06/22 [History Last Taken Unknown] coenzyme Q10 100 mg capsule (CoQ-10) 100 mg PO DAILY 11/06/22 [History Last Taken Unknown] pravastatin 10 mg tablet 20 mg PO QHS 11/06/22 [History Last Taken Unknown] medroxyprogesterone 10 mg tablet 10 mg PO DAILY 01/10/23 [History Last Taken Unknown] Allergy/AdvReac Type Severity Reaction Status Date / Time phenytoin [From Dilantin] Allergy Rash Verified 12/05/22 06:22 Family History Father CVA (cerebral vascular accident) Brother CVA (cerebral vascular accident) Surgical History (Updated 01/10/23 @ 12:14 by Annabelle Cota) History of arthroplasty of right hip (2015) History of bunionectomy History of laparoscopy Hx of right cataract extraction Hx of total knee arthroplasty Hx of total knee arthroplasty Social History Smoking Status: Never smoker Past Medical/Surgical History Planned Operation Planned Operative Procedure/s: colonoscopy S.O.S: No Previous Hospitalizations/Surgeries HX Hospitalizations: No HX of Surgeries: 2012 bunionectomy left 2016 right thr 2017 right cataract iol 1986 egd Any Problems With Anesthesia: No You/Your Family Experience Fever (Hyperthermia) With Anes: No Cholinesterase deficiency: No Cardiovascular Hx Chest Pain within Last 2 months: No Hx of Irregular Heartbeat and/or Afib: No Hx Heart Attack: No Hx Congestive Heart Failure: No Hx Rheumatic Fever: No Hx Hypertension: No Hx Internal Defibrillator: No Hx Pacemaker: No Hx Cardiac Catheterization: No Hx Cardiac Surgery/Stents/Etc.: No Hx Stress Test: No Hx Pain in Legs when Walking/Leg Cramps: Yes (left knee) Respiratory Chronic Cough: No HX of Shortness of Breath: No Hoarseness: No Hx Chronic Obstructive Pulmonary Disease (COPD): No Hx Asthma: No Hx Emphysema: No Hx Sleep Apnea: No Hx Respiratory Tract Infection/Cold (presently): No Do You Snore Loudly (louder than talking or can be heard): No Do You Often Feel Tired/ Fatigued/ Sleepy Dring Daytime?: No Has Anyone Observed You Stop Breathing During Sleep?: No Result (for STOP score): Negative Hx Smoking: No Smoking Status: Never smoker Gastrointestinal Hx Gastroesophageal Reflux: No Hx Gastrointestinal Disorders: No Hx Gastrointestinal Bleed: No Hx Ulcer: Yes (in the past) Hx Hiatal Hernia: No Difficulty Chewing/Swallowing: No Special diet followed at home: No Hx Unplanned Weight Loss of 20#: No HX Unplanned Weight Gain of 20#: No Neurological Hx Seizures: No HX Syncope/Blackout Spells/Unconsciousness: Yes (1970 blacked out/over heated per pt.) Hx Transient Ischemic Attacks (TIA): No Hx Multiple Sclerosis: No Hx Parkinson's Disease: No Hx Head/Neck Injury: No Hx Headaches: No Hx Back Injury/Pain: No Recent Onset of Speech Difficulty: No Restless Legs: No Does patient have nerve stimulator: No Blood Disorder Hx Leukemia: No Bleeding Tendencies: No Hx Deep Vein Thrombosis: No Hx High Cholesterol: Yes (on med) Blood Transmitted Disease: No Hx Hepatitis: No Hx Cirrhosis: No Hx Anemia: No Hx Blood Disorders: No Reproduction : No Is Patient Lactating: No Hx Hysterectomy: No Hx Tubal Ligation: No Are You Post Menopause: Yes Genitourinary Hx Renal Disease: No Musculoskeletal Hx Arthritis: Yes Hx Rheumatoid Arthritis: No Hx Gout: No Recent Onset of an Orthopedic Problem: No Endocrine Hx Diabetes: No Thyroid Disease: No Hx Steroid Therapy: No Psycho/Social Hx Substance Use: No Hx Alcohol Use: No Hx Anxiety: No Hx Depression: No Mental Illness: No Hx Dementia: No Miscellaneous Hx Cancer: No Recent Exposure to Contagious Disease: No Hx of C-Diff: No Any Loose Teeth: No Allergies phenytoin [From Dilantin] Allergy (Verified 12/05/22 06:22) Rash Discharge Is Pt Admitted From a Residential, or a Mcfp: No Who Could Help: family After D/C, Where Do you Plan to Go: Return Home From the [facility] History Number of Risk Factors: 3 Vital Signs Vital Signs Vital Signs: 01/15/23 06:52 01/15/23 06:52 Temperature 97.6 F L Temperature Source Temporal Pulse Rate 93 Respiratory Rate 16 Respiratory Pattern Normal Blood Pressure 133/86 H Blood Pressure Mean 101 Blood Pressure Source Monitor Blood Pressure Position Semi-Fowlers Blood Pressure Location Right Arm Pulse Ox 96 Oxygen Delivery Method Room Air Weight Weight: 174 lb 2.643 oz Body Mass Index (BMI) 32.9 Physical Exam Const alert, oriented x3 and no apparent distress HEENT normocephalic and head/scalp atraumatic Resp normal respiratory effort Cardio regular rate GI soft to palpation and non-tender; Negative for non-distended Palpation: Negative for guarding Extremity no clubbing, cyanosis or edema Neuro CN's II-XII intact bilaterally Psych mental status grossly normal Assessment & Plan Assessment/Plan (1) Encounter for screening for malignant neoplasm of colon: Surgery Risks - Colonoscopy I discussed with the patient the risks of the procedure: Yes Risks Include but are not Limited To: Risks include but are not limited to: Bleeding, perforation requiring further surgery, inability to complete colonoscopy requiring barium enema.
--- NOTE | 2023-01-15 08:35 | OP.CCLET_ITS ---
01/15/2023 Lakesha Tellez [address] [place] [address] Re : Colonoscopy procedure for Leandra Carroll Dear Dr. Tellez This procedure was performed on Sunday, January 15, 2023. My impressions and recommendations are as follows: Impressions : - Hemorrhoids found on perianal exam. - Non-bleeding internal hemorrhoids. - The entire examined colon is normal. - No specimens collected. Recommendations : - Discharge patient to home. - Resume previous diet. - Continue present medications. - Repeat colonoscopy in 10 years for screening purposes. My findings are described in the full procedure note, which is enclosed. If I can be of further assistance, please feel free to contact me at Doctor phone number(s): , Work: . Sincerely, MD Benita Craig MD 01/15/2023 8:34:31 AM This report has been signed electronically.
--- NOTE | 2023-01-15 08:35 | OP.COLON_ITS ---
Patient Name: Leandra Carroll Procedure Date: 01/15/2023 7:55 AM Date of : 1955 Age: 67 Procedure: Colonoscopy Indications: Screening for colorectal malignant neoplasm Providers: Benita Oconnor MD Referring MD: Benita Oconnor MD Medicines: Monitored Anesthesia Care Patient Profile: This is a 67 year old female. Last Colonoscopy: none. The patient's first colonoscopy is today. Complications: No immediate complications. Procedure: Pre-Anesthesia Assessment: - Prior to the procedure, a History and Physical was performed, and patient medications and allergies were reviewed. The patient's tolerance of previous anesthesia was also reviewed. The risks and benefits of the procedure and the sedation options and risks were discussed with the patient. All questions were answered, and informed consent was obtained. Prior Anticoagulants: The patient has taken no previous anticoagulant or antiplatelet agents. ASA Grade Assessment: Per anesthesia. After reviewing the risks and benefits, the patient was deemed in satisfactory condition to undergo the procedure. After I obtained informed consent, the scope was passed under direct vision. Throughout the procedure, the patient's blood pressure, pulse, and oxygen saturations were monitored continuously. The colonoscope was introduced through the anus and advanced to the cecum, identified by the appendiceal orifice, ileocecal valve and palpation. The colonoscopy was performed without difficulty. The patient tolerated the procedure well. The quality of the bowel preparation was good. Scope In: 8:04:37 AM Scope Withdrawal Time 0 hours 12 minutes 34 seconds Scope Out: 8:28:41 AM Total Procedure Duration Time 0 hours 24 minutes 4 seconds Findings: Hemorrhoids were found on perianal exam. Non-bleeding internal hemorrhoids were found. The hemorrhoids were Grade I (internal hemorrhoids that do not prolapse). The entire examined colon appeared normal. Impression: - Hemorrhoids found on perianal exam. - Non-bleeding internal hemorrhoids. - The entire examined colon is normal. - No specimens collected. Recommendation: - Discharge patient to home. - Resume previous diet. - Continue present medications. - Repeat colonoscopy in 10 years for screening purposes. Procedure Code(s): --- Professional --- 85332, PT, Colonoscopy, flexible; diagnostic, including collection of specimen(s) by brushing or washing, when performed (separate procedure) Diagnosis Code(s): --- Professional --- Z12.11, Encounter for screening for malignant neoplasm of colon K64.0, First degree hemorrhoids CPT copyright 2017 [employer]. All rights reserved. The codes documented in this report are preliminary and upon cutting inspector review may be revised to meet current compliance requirements. MD Benita Craig MD 01/15/2023 8:34:31 AM This report has been signed electronically. Number of Addenda: 0 Note Initiated On: 01/15/2023 7:55 AM
== END 2023-01-15 09:11 | disposition home or self-care (01) ==
LOC: EN 06:36 → AC 06:37
PROVIDERS: PCP Family Medicine; Referring Provider Surgery; Visit Provider Surgery
PROC: 0DJD8ZZ Inspection of Lower Intestinal Tract, Via Natural or Artificial Opening Endoscopic (ICD-10-PCS; CPT 45378; principal; 2023-01-15 07:55)
DX: Z12.11 Encounter for screening for malignant neoplasm of colon (principal); I10 Essential (primary) hypertension; E78.00 Pure hypercholesterolemia, unspecified; K64.0 First degree hemorrhoids; Z79.899 Other long term (current) drug therapy
CPT/HCPCS: 45378; J7120; J2405

== ENCOUNTER → 2023-02-12 | Outpatient (CLI) | payer MEDICARE, BC, SELFPAY ==
--- NOTE | 2023-02-12 10:33 | BI_ITS ---
MAMMOGRAPHY - BILATERAL SCREENING REASON FOR EXAM: Female, 67 years old. Routine annual screening examination. PERTINENT HISTORY: Non-contributory. TECHNIQUE: Digital bilateral breast krystal (3D mammographic acquisition) in the CC and MLO projections. 2-D mediolateral oblique (MLO) and craniocaudad (CC) views of both breasts were obtained. CAD: Full Field Digital Mammography with Computer Added Detection was performed. COMPARISON: Comparison is made with prior study dated October 20, 2014 and June 21, 2011. FINDINGS: Breast Composition: There are scattered areas of fibroglandular density. There are no dominant masses or suspicious calcifications. No other significant abnormalities are identified. There has been no significant change since the prior study. BI/SCRN MAMM (CAD)W/KRYSTAL BILAT IMPRESSION: Stable bilateral screening mammogram. Yearly follow-up mammogram recommended. (A) ASSESSMENT CATEGORY: BIRADS Category 1: Negative. A letter regarding these results will be sent to the patient by the facility within 30 days. Approximately 10% of breast cancers are not detected by mammography. A normal mammogram should not delay biopsy of a clinically suspicious abnormality. [id number] Electronically Signed: Tim Uribe MD at 12:35 EDT ,
== END | disposition home or self-care (01) ==
LOC: OPBI 10:31
PROVIDERS: PCP Family Medicine; Referring Provider Nurse Practitioner Women's Health; Visit Provider Nurse Practitioner Women's Health
DX: Z12.31 Encounter for screening mammogram for malignant neoplasm of breast (principal)
CPT/HCPCS: 77063; 77067

== ENCOUNTER → 2023-03-25 | Outpatient (CLI) | payer MEDICARE, BC, SELFPAY ==
--- NOTE | 2023-03-25 14:10 | EMB_PTH ---
PATIENT: DEONTE MULTANI LOC: [facility] U#:[id number] AGE/SX: 68/F ROOM: RE03/25/[address]: Dr. Georgette Calhoun DO : 1955 BED: DIS: 03/25/2023 SPEC #: [id number] RECD: 03/25/23 15:02 STATUS: AYANNA RELaurie #: [id number] BENI: 03/25/23 14:[address]: Georgette Calhoun DEPT: SURGICAL PATHOLOGY RECD BY: Wendy Saleh ENTERED: 03/26/23 07:48 SP TYPE: ENDOM BX/C MICHELLE DR: Dr. Lakesha Tellez DO Tissues: Endometrium, NOS Procedures: Surgery Specimen Level IV HEADER OPERATION: Endometrial biopsy PRE-OP DIAGNOSIS: N85.01 TISSUE SUBMITTED: Endometrial biopsy MICROSCOPIC DIAGNOSIS Endometrial biopsy: Strips of benign endometrial epithelium and superficial fragments of benign endometrial tissue. Negative for endometrial hyperplasia. SJ:rivera 03/27/2023 COMMENT Please make reference to previous specimen ([id number]) endometrial curettings and polyp with diagnosis of polypoid fragments of endometrial tissue, consistent with fragments of endometrial polyp with simple cystic endometrial hyperplasia without atypia. MICROSCOPIC DESCRIPTION Slides are reviewed. GROSS DESCRIPTION Received in fixative is one container labeled with the patient's name and designated endometrial biopsy. The specimen consists of a scant amount of soft tissue. The specimen is totally submitted for cell block preparation. / SJ:rg 03/26/2023 TC:4 CPT: 19172
== END | disposition home or self-care (01) ==
LOC: LABSPEC 14:27
PROVIDERS: PCP Family Medicine; Visit Provider Student in an Organized Health Care Education/Training Program
DX: N85.8 Other specified noninflammatory disorders of uterus (principal)
CPT/HCPCS: 88305

== ENCOUNTER → 2023-05-14 | Outpatient (CLI) | payer MEDICARE, BC, SELFPAY ==
--- NOTE | 2023-05-14 | EMB_PTH ---
PATIENT: DEONTE MULTANI LOC: [facility] U#:[id number] AGE/SX: 68/F ROOM: RE05/14/[address]: Dr. Georgette Calhoun DO : 1955 BED: DIS: 05/14/2023 SPEC #: [id number] RECD: 05/14/23 16:10 STATUS: AYANNA RE #: [id number] BENI: 05/14/23 00:[address]: Georgette Calhoun DEPT: SURGICAL PATHOLOGY RECD BY: Wendy Saleh ENTERED: 05/15/23 10:19 SP TYPE: ENDOM BX/C MICHELLE DR: Dr. Lakesha Tellez DO Tissues: Endometrium, NOS Procedures: Surgery Specimen Level IV HEADER OPERATION: Endometrial biopsy PRE-OP DIAGNOSIS: N85.01 TISSUE SUBMITTED: Endometrial biopsy MICROSCOPIC DIAGNOSIS Endometrial biopsy: Strips of benign endometrial epithelium. Fragments of benign squamous epithelium, blood and mucous. See comment. SJ:rivera 05/16/2023 COMMENT The specimen predominantly consists of mucoid tissue. Rare foreign body giant cells are also noted. No evidence of hyperplasia. Clinical correlation and appropriate follow up are necessary. Please make reference to previous specimens ([id number]) endometrial curettings and polyp with diagnosis of polypoid fragments of endometrial tissue consistent with fragments of endometrial polyp with simple cystic hyperplasia without atypia and ([id number]) endometrial biopsy with diagnosis of strips of benign endometrial epithelium and superficial fragments of benign endometrial tissue and negative for endometrial hyperplasia. MICROSCOPIC DESCRIPTION Slides are reviewed. GROSS DESCRIPTION Received is one container labeled with the patient's name and not further designated. The specimen consists of multiple irregular fragments of madrid mucoid tissue mixed with hemorrhagic tissue that in aggregate measure 2.0 x 1.0 x 0.1 cm. The specimen is totally submitted in one cassette. / TAYLOR:rivera 05/15/2023 TC:5 CPT: 47940
== END | disposition home or self-care (01) ==
PROVIDERS: PCP Family Medicine; Visit Provider Student in an Organized Health Care Education/Training Program
DX: N85.01 Benign endometrial hyperplasia (principal)
CPT/HCPCS: 88305

== ENCOUNTER → 2024-10-06 | Outpatient (CLI) | payer MEDICARE, BC, SELFPAY ==
[2024-10-06 12:55] LABS: Cholesterol 209 mg/dL (200); High Density Lipoprotein 59 mg/dL; Triglycerides 117 mg/dL; Very Low Density Lipoprotein 23 mg/dL (5-40)
== END | disposition home or self-care (01) ==
LOC: BFHLAB 09:50
PROVIDERS: PCP Family Medicine; Visit Provider Family Medicine
DX: E78.5 Hyperlipidemia, unspecified (principal)
CPT/HCPCS: 36415; 80061

== ENCOUNTER → 2024-10-06 | Outpatient (CLI) | payer MEDICARE, BC, SELFPAY ==
--- NOTE | 2024-10-06 13:20 | BI_ITS ---
PROCEDURE: SCRN MAMM (CAD)W/KRYSTAL BILAT REASON FOR EXAM: F, Age 69 y/o, no family history. TECHNIQUE: Bilateral screening digital breast tomosynthesis with 2D and 3D images. Computer aided detection. COMPARISON: Prior exam(s) dating back to February 12, 2023.. FINDINGS: There are scattered areas of fibroglandular density. There has been no change. No suspicious masses, areas of developing architectural distortion, or suspicious calcifications. BI/SCRN MAMM (CAD)W/KRYSTAL BILAT IMPRESSION: BI-RADS 1: NEGATIVE. RECOMMEND ANNUAL MAMMOGRAPHIC SCREENING. Follow-up code: Routine Follow-up The patient will be notified of the results by letter. Reading Location: [place] [address]
== END | disposition home or self-care (01) ==
PROVIDERS: PCP Family Medicine; Referring Provider Family Medicine; Visit Provider Family Medicine
DX: Z12.31 Encounter for screening mammogram for malignant neoplasm of breast (principal)
CPT/HCPCS: 77063; 77067